=== PATIENT | female | born 2000 | race African-American/Black ===

== ENCOUNTER → 2020-03-13 14:36 | Outpatient (BNVA) | payer MEDICAID, SELFPAY | PROVIDERS: Visit Provider Nurse Practitioner | DX: Z76.89 Persons encountering health services in other specified circumstances (principal) | CPT/HCPCS: 99213 ==

== ENCOUNTER 2020-04-30 21:24 | Emergency (ER) | payer MEDICAID, SELFPAY ==
[2020-04-30 21:25] VITALS: BP 141/70; PULSE 87; RESP 18; TEMP 36.4; O2SAT 100; BMI 28.7
--- NOTE | 2020-04-30 22:23 | ED_ITS ---
HPI - Skin/Abscess/Foreign Bdy General Chief complaint: Skin/Abscess/Foreign Body Stated complaint: Red Inflamed Skin Time Seen by Provider: 04/30/20 22:12 Source: patient Mode of arrival: ambulatory Limitations: no limitations History of Present Illness HPI narrative: patient noticed 2 small bumps on her right elbow 2 days ago possible insect bite, today she noticed redness around it with swelling spreading. No fever no chills no joint pain MD complaint: rash and insect bite/sting Onset (ago): day(s) (2) Tetanus up to date: yes Related Data Previous Rx's Medication Instructions Recorded cephalexin [Keflex] 500 mg PO QID 10 Days #40 cap 04/30/20 doxycycline hyclate 100 mg PO BID #20 cap 04/30/20 Allergies Allergy/AdvReac Type Severity Reaction Status Date / Time apple [APPLE] Allergy Severe THROAT Unverified 02/24/20 16:47 CLOSING hernández Allergy Severe THROAT Unverified 02/24/20 16:47 CLOSING kiwi [KIWI] Allergy Severe THROAT Unverified 02/24/20 16:47 CLOSING lamotrigine [From LAMICTAL] Allergy Severe HIVES Unverified 02/24/20 16:47 peach [[place]] Allergy Severe THROAT Unverified 02/24/20 16:47 CLOSING pear [PEAR] Allergy Severe THROAT Unverified 02/24/20 16:47 CLOSING plum [PLUM] Allergy Severe THROAT Unverified 02/24/20 16:47 CLOSING strawberry [STRAWBERRY] Allergy Severe THROAT Unverified 02/24/20 16:47 CLOSING Review of Systems Review of Systems: Yes all other systems are reviewed and are negative PMF Past Medical History Medical History Asthma IBS (irritable bowel syndrome) Surgical History History of tonsillectomy Family History Family History Father No problems noted. Mother No problems noted. Brother Crohn's disease Social History Social History Alcohol intake: current Alcohol intake frequency: does not drink Smoking Status: Never smoker Advance Directives: No Advance Directives Information Provided: Yes Physical Exam Vital Signs: Vital Signs: Last Vital Signs Temp 97.5 F 04/30/20 21:25 Pulse 87 04/30/20 21:25 Resp 18 04/30/20 21:25 BP 141/70 H 04/30/20 21:25 Pulse Ox 100 04/30/20 21:25 Body Mass Index 28.7 Const: General: cooperative, healthy appearing, comfortable and no acute distress Resp: Effort & Inspection: normal respiratory effort Auscultation: clear to auscultation bilaterally Cardio: Rate: regular rate Rhythm: regular rhythm Heart sounds: S1 normal heart sound present and S2 normal heart sound present Skin: Other: cellulitic erythematous rash right elbow were the size of 10 cm, not circumferential, right elbow range of movement is normal. No open wound Rashes: rashes noted ( right elbow) Course Course Course Narrative: will treat patient outpatient antibiotic doxycycline and Keflex for cellulitic rash after insect bite Discharge Plan Discharge Clinical Impression: Cellulitis Patient Disposition: Home, Self-Care Instructions: Cellulitis (ED) Additional Instructions: take antibiotics as prescribed. Report to the ER if worsening of the redness /swelling fever Prescriptions: New doxycycline hyclate 100 mg capsule 100 mg PO BID Qty: 20 RF: 0 cephalexin [Keflex] 500 mg capsule 500 mg PO QID 10 Days Qty: 40 RF: 0
[2020-04-30] MEDS: cephALEXin 500 MG CAPSULE PO (22:34)
== END 2020-04-30 23:03 | disposition home or self-care (01) ==
PROVIDERS: Emergency Provider Internal Medicine; PCP Pediatrics
DX: L03.113 Cellulitis of right upper limb (principal); M25.521 Pain in right elbow; Z79.899 Other long term (current) drug therapy
CPT/HCPCS: 99283; 99284

== ENCOUNTER 2020-05-02 21:00 | Emergency (ER) | payer MEDICAID, SELFPAY ==
[2020-05-02 21:07] VITALS: BP 131/65; PULSE 90; RESP 16; TEMP 36.8; O2SAT 98; BMI 28.9
--- NOTE | 2020-05-02 21:30 | ED_ITS ---
HPI - Skin/Abscess/Foreign Bdy General Chief complaint: Skin/Abscess/Foreign Body Stated complaint: cellulitus Time Seen by Provider: 05/02/20 21:30 Source: patient Mode of arrival: ambulatory Limitations: no limitations History of Present Illness MD complaint: rash and lesion Onset (ago): day(s) (today) Tetanus up to date: yes Location: RUE and LLE Severity: mild Quality: pruritic Relieving factors: none Exacerbating factors: none Context: none Associated symptoms: denies other symptoms Treatments prior to arrival: antibiotic (has been on keflex and doxy for 2 days for RUE which is improving) Related Data Previous Rx's Medication Instructions Recorded cephalexin [Keflex] 500 mg PO QID 10 Days #40 cap 04/30/20 doxycycline hyclate 100 mg PO BID #20 cap 04/30/20 prednisone 40 mg PO DAILY 4 Days #8 tab 05/02/20 Allergies Allergy/AdvReac Type Severity Reaction Status Date / Time apple [APPLE] Allergy Severe THROAT Verified 05/02/20 21:30 CLOSING hernández Allergy Severe THROAT Verified 05/02/20 21:30 CLOSING kiwi [KIWI] Allergy Severe THROAT Verified 05/02/20 21:30 CLOSING lamotrigine [From LAMICTAL] Allergy Severe HIVES Verified 05/02/20 21:30 peach [[place]] Allergy Severe THROAT Verified 05/02/20 21:30 CLOSING pear [PEAR] Allergy Severe THROAT Verified 05/02/20 21:30 CLOSING plum [PLUM] Allergy Severe THROAT Verified 05/02/20 21:30 CLOSING strawberry [STRAWBERRY] Allergy Severe THROAT Verified 05/02/20 21:30 CLOSING bee pollen [bee stings] Allergy Unknown Verified 05/02/20 21:30 Review of Systems Review of Systems: Constitutional : No Fever, No Chills ENT/Mouth : No sore throat, No Rhinorrhea Eyes: No Eye Pain, No Swelling, No Redness Cardiovascular : No Chest Pain, No SOB Respiratory : No Cough, No Sputum Gastrointestinal : No Nausea, No Vomiting, No Diarrhea, No abdominal Pain Genitourinary : No Dysuria, No Hematuria Musculoskeletal : No joint pain, No Myalgias, No Joint Swelling Skin : No Skin Lesions, positive skin rash Neuro : No Weakness, No Numbness, No Headache PMFSH Past Medical History Attestation statement: The following information was validated with the patient. Medical History Asthma IBS (irritable bowel syndrome) Surgical History History of tonsillectomy Family History Family History Father No problems noted. Mother No problems noted. Brother Crohn's disease Social History Social History Alcohol intake: never Smoking Status: Never smoker Advance Directives: No Advance Directives Information Provided: Yes Physical Exam Vital Signs: Vital Signs: Last Vital Signs Temp 98.3 F 05/02/20 21:07 Pulse 90 05/02/20 21:07 Resp 16 05/02/20 21:07 BP 131/65 05/02/20 21:07 Pulse Ox 98 05/02/20 21:07 Body Mass Index 28.9 Appearance: Alert. Oriented X3. No acute distress. Eyes: Pupils equal, round and reactive to light. ENT: Pharynx normal. Neck: Normal inspection. Neck supple. CVS: Normal heart rate and rhythm. Pulses normal. Respiratory: No respiratory distress. Breath sounds normal. Abdomen: Soft and nontender. Skin: RUE small erythematous area - clearing, L calf raised area on posterior aspect mild erythema no warmth - large hive appearance Extremities: No lower extremity edema. No calf ttp Neuro: Oriented X 3. No motor deficit. No sensory deficit. MDM - Skin/Abscess/Foreign Bdy MDM Narrative Medical decision making narrative: 19 yo female with recent cellulitis of RUE on keflex and doxycycline - now with new lesion on L calf more consistent with a local allergic reaction - no overlying cellulitis, will start on steroids and refer to PCP Discharge Plan Discharge Clinical Impression: Allergic reaction Qualifiers: Encounter type: initial encounter Qualified Code(s): T78.40XA - Allergy, unspecified, initial encounter Patient Disposition: Home, Self-Care Instructions: Urticaria (ED), Allergies (ED) Additional Instructions: return to ED for any worsening symptoms or concerns YOU CAN USE TOPICAL BENADRYL TO TREAT ITCHING, CONTINUE YOUR ANTIBIOTICS Prescriptions: New prednisone 20 mg tablet 40 mg PO DAILY 4 Days Qty: 8 RF: 0 No Action doxycycline hyclate 100 mg capsule 100 mg PO BID Qty: 20 RF: 0 cephalexin [Keflex] 500 mg capsule 500 mg PO QID 10 Days Qty: 40 RF: 0 Referrals: Geovanna Mijares MD [Primary Care Provider] - 2 days (if not better) Stand Alone Forms: Work/School Release
[2020-05-02] MEDS: predniSONE 20 MG TABLET 40 MG PO (21:43)
== END 2020-05-02 21:45 | disposition home or self-care (01) ==
PROVIDERS: Emergency Provider Emergency Medicine; PCP Pediatrics
DX: L23.9 Allergic contact dermatitis, unspecified cause (principal); Z79.899 Other long term (current) drug therapy
CPT/HCPCS: 99283

== ENCOUNTER → 2020-07-18 12:39 | Outpatient (BNVA) | payer MEDICAID, SELFPAY | PROVIDERS: PCP Pediatrics; Visit Provider Nurse Practitioner ==

== ENCOUNTER → 2021-01-15 14:25 | Outpatient (BNVA) | payer MEDICAID, SELFPAY | PROVIDERS: PCP Pediatrics; Visit Provider Nurse Practitioner ==

== ENCOUNTER → 2021-03-02 15:22 | Outpatient (BNVA) | payer MEDICAID, SELFPAY | PROVIDERS: PCP Family Medicine; Visit Provider Nurse Practitioner ==

== ENCOUNTER → 2021-04-13 16:04 | Outpatient (BNVA) | payer MEDICAID, SELFPAY | PROVIDERS: PCP Family Medicine; Visit Provider Nurse Practitioner ==

== ENCOUNTER 2021-06-12 08:58 | Outpatient (REF) | payer MEDICAID, SELFPAY ==
[2021-06-12 12:30] LABS: Binax Internal Control QC Valid; Binax Lot number: 9864; Binax Now Covid-19 Ag Positive (Negative)
== END 2021-06-12 08:59 | disposition home or self-care (01) ==
LOC: HO.LAB 08:58
PROVIDERS: Visit Provider Internal Medicine
DX: Z20.822 Contact with and (suspected) exposure to COVID-19 (principal)
CPT/HCPCS: 36415; C9803

== ENCOUNTER 2021-08-21 08:17 | Emergency (ER) | payer MEDICAID, SELFPAY ==
--- NOTE | ~2021-08-21 | CT_ITS ---
EXAMINATION: CT CHEST, ABDOMEN AND PELVIS WITH CONTRAST. CLINICAL INFORMATION: Chest and abdominal pain. Confluent adenopathy in the mediastinum on CTA neck exam COMPARISON: None TECHNIQUE: 5 minutes thin axial and reformatted 3 mm thin sagittal and coronal images of chest, abdomen pelvis were obtained following IV 85 mL Omnipaque 350. DLP: 760. FINDINGS: Chest: Lungs: Lungs are well-expanded. There is a pleural-based density 1.6 cm density left CP angle medially axial image 50/6, 1.1 cm right upper lobe lesion attached to the right minor fissure at the confluence axial image 218/7 and 7 mm nodule left upper lobe centrally axial image 168/7. The lungs are expanded with the right azygos lobe noted. There is focal calcification within the azygos fissure. Mediastinum: The thyroid lobes are symmetrical. The central trachea and bronchi are widely patent. Heart size and the great vessels are normal caliber. There is moderate bilateral hilar (the right, left para-aortic abnormal lymphadenopathy. Largest left posterior hilar lymph node measures 1.8 cm axial image 26/5. There is trace coronary artery calcifications. No pericardial effusion seen. Pleura: There is no pleural thickening, calcification or effusion. Axilla: No abnormal size neck lymph nodes seen. The chest wall is unremarkable. The breast are symmetric. Abdomen and pelvis: Liver, ducts and gallbladder: The liver is mildly attenuated but normal size and contour. No focal lesion or intrahepatic ductal dilatation seen. The gallbladder is normal size without radiopaque stones. Spleen unremarkable. Pancreas: Unremarkable. Adrenal glands: Unremarkable. Kidneys, ureter and bladder: There is normal symmetric nephrograms in both ureters and kidneys. There are no radiopaque renal calculi or hydronephrosis. There are symmetrical bilateral nephrograms Lymphovascular structures: The abdominal aorta is of normal caliber. No abnormal retroperitoneal lymph nodes or mass seen. Abdominal wall: Unremarkable except for a belly ring at the umbilicus. GI tract: There is scattered stool and gas in transverse and right colon without distention. The small bowel loops are normal caliber. Appendix is not visualized. No free air or free fluid seen. Pelvis: Imaging through the pelvis reveals no focal lesion. The uterus is anteverted. No abnormal lymph nodes seen. The urinary bladder is unremarkable. Osseous structures: There is no lytic or sclerotic process seen. The presacral and paraseptal soft tissues are normal.. CT/CT abdomen pelvis w con IMPRESSION: Moderate size 3 lung nodules seen., Suspicious. Abnormal para-aortic, bilateral hilar and middle mediastinal lymphadenopathy. No abnormal mass or lymphadenopathy in the abdomen or pelvis. Mild constipation.
--- NOTE | ~2021-08-21 | CT_ITS ---
EXAMINATION: CT ANGIOGRAM NECK WITH CONTRAST CT ANGIOGRAM BRAIN WITH CONTRAST CLINICAL INFORMATION: Sudden onset headache. 4:00 AM, from sleep. COMPARISON: None. TECHNIQUE: Test bolus sequences followed by intravenous administration 100 mL of Omnipaque 350. Helical imaging was performed in the axial plane from the thoracic inlet to the skull vertex. Delayed postcontrast imaging of the head was also performed. The data was processed at the dairy technologist workstation for generation of MIP sequences. Angled MIPs and volume rendered reformatted images were also generated at an offline 3D workstation. Stenoses are assessed in accordance with NASCET criteria unless otherwise indicated. This CT examination was performed using dose optimization techniques as appropriate, variously including the following: *Automated exposure control *Adjustment of mA and/or kV according to patient size (this includes techniques or standardized protocols for targeted exams where dose is matched to indication/reason for exam; i.e. extremities or head) *Use of iterative reconstruction technique DLP: 2334 mGy-cm FINDINGS: Head CT: There is no intracranial hemorrhage, large acute infarction, or mass lesion. The ventricles are normal in size and configuration without evidence of hydrocephalus. No abnormal enhancement is seen. The dural venous sinuses are normally opacified. The visualized paranasal sinuses and mastoid air cells are clear. Neck CTA: Evaluation is limited particularly in the lower neck due to the poor opacification of the arterial vasculature an artifact related to venous contamination. The aortic arch and great vessel origins are patent. The bilateral common and internal carotid arteries are patent. The vertebral arteries appear grossly patent. Head CTA: No proximal vessel occlusion is seen. The anterior and posterior circulations appear patent. No definite aneurysm is seen. Non-vascular findings: Bulky confluent adenopathy is seen within the visualized portions of the mediastinum particularly on the left where soft tissue seen surrounding the left pulmonary artery. Further soft tissue nodularity is seen along the left upper lobe bronchus. There is focal soft tissue lesion measuring approximately 1.3 cm along the left upper lung pleura confluent with the chest wall (series 7 image [id number]). CT/CT angio head neck IMPRESSION: Bulky confluent adenopathy within the mediastinum with additional nodularity seen in the left upper lobe and along the left upper lobe pleura confluent with the chest wall. A metastatic process is favored. Further evaluation with CT of the chest, abdomen, and pelvis with contrast is recommended. No acute intracranial abnormality is seen. Consider brain MRI for more sensitive evaluation. Major head and neck arteries appear grossly patent however the neck arteries are somewhat difficult to evaluate due to artifact. This critical result was discussed with SAMANTHA Pang on 08/21/2021 11:13 AM, and it was ascertained that the content and urgency of the report was understood at the time of direct communication.
[2021-08-21 08:21] VITALS: BP 132/79; PULSE 74; RESP 20; TEMP 36.4; O2SAT 100; BMI 29.2
--- NOTE | 2021-08-21 08:55 | ED_ITS ---
HPI - Headache General Chief Complaint: Headache Stated Complaint: Numbness/severe headaches Time Seen by Provider: 08/21/21 08:37 Source: patient Mode of arrival: ambulatory History of Present Illness HPI Narrative: 21-year-old female past medical history of asthma, IBS, presenting to the ED complaining of sudden onset headache waking her from sleep at 04:00. Admits headache has been constant since onset worse on right side with associated intermittent left finger and lip numbness, nausea, and 2 episodes of emesis. Denies similar headaches in the past. Denies head trauma, no neck pain, taking anticoagulation, vision change/loss, weakness, CP/SOB, abdominal pain MD elicited complaint: headache Onset (ago): hour(s) Onset description: suddenly Location: right Severity: mild Related Data Previous Rx's Medication Instructions Recorded dicyclomine 10 mg capsule 10 mg PO QID 30 Days #120 cap 01/15/21 famotidine 40 mg tablet (Pepcid) 40 mg PO DAILY PRN 30 Days #30 tab 03/02/21 Allergies Allergy/AdvReac Type Severity Reaction Status Date / Time apple [APPLE] Allergy Severe THROAT Verified 04/13/21 16:06 CLOSING hernández Allergy Severe THROAT Verified 04/13/21 16:06 CLOSING kiwi [KIWI] Allergy Severe THROAT Verified 04/13/21 16:06 CLOSING lamotrigine [From LAMICTAL] Allergy Severe HIVES Verified 04/13/21 16:06 peach [[place]] Allergy Severe THROAT Verified 04/13/21 16:06 CLOSING pear [PEAR] Allergy Severe THROAT Verified 04/13/21 16:06 CLOSING plum [PLUM] Allergy Severe THROAT Verified 04/13/21 16:06 CLOSING strawberry [STRAWBERRY] Allergy Severe THROAT Verified 04/13/21 16:06 CLOSING bee pollen [bee stings] Allergy Intermediate Unknown Verified 04/13/21 16:06 Review of Systems Review of Systems: Constitutional: No Fever, No Chills, No Fatigue, No Malaise ENT/Mouth:No Ear Pain, No sore throat, No Rhinorrhea, No Swallowing Difficulty Eyes: No Eye Pain, No Swelling, No Redness, No Discharge, No Vision Changes Cardiovascular: No Chest Pain, No SOB, No Orthopnea, No Edema, No Palpitations Respiratory: No Cough, No Sputum, No Dyspnea Gastrointestinal: + Nausea, + Vomiting, No Diarrhea, NNo Abdominal pain Genitourinary: No Dysuria, No Urinary Frequency, No Hematuria, No Urinary Incontinence, No Flank Pain Musculoskeletal: No joint pain, No Myalgias, No Joint Swelling Skin: No Skin Lesions, No rash Neuro: No Weakness, + Numbness, + Paresthesias, No Loss of Consciousness, + lightheaded, + Headache Yes all other systems are reviewed and are negative Neurologic: Denies Abnormal speech present [facility] Past Medical History Attestation statement: The following information was validated with the patient. Medical History Asthma IBS (irritable bowel syndrome) Surgical History History of colonoscopy History of esophagogastroduodenoscopy (EGD) History of tonsillectomy Family History Family History Father No problems noted. Mother Brain tumor (benign) Brother Crohn's disease Social History Social History Household Members Other:: Boyfriend Alcohol intake: never Patient Tobacco Use Status: Never used Tobacco Second Hand Smoke Exposure: No Use of substances other than those prescribed or required for medical reasons: No Advance Directives: No Advance Directives Information Provided: Yes Patient : No Current occupational status: employed Current occupation: [employer] Physical Exam Vital Signs: Vital Signs: Last Vital Signs Temp 98.4 F 08/21/21 14:19 Pulse 77 08/21/21 14:19 Resp 16 08/21/21 14:19 BP 94/60 08/21/21 14:19 Pulse Ox 100 08/21/21 14:19 BMI result Body Mass Index 29.2 Const: General: cooperative, healthy appearing, no acute distress, alert, awake and Physically active Orientation/consciousness: patient oriented x3 Limitations: no limitations HENMT: Head: Yes normal to inspection, Yes atraumatic and Yes abrasion Ears: hearing grossly normal bilaterally General nose exam: Normal external nose present Face and sinus: Yes normal facial exam Mouth: Normal oral and palatal mucosa present Throat: Yes posterior oropharynx normal, Yes tonsils normal and Yes uvula midline Eyes: General: appearance normal, both eyes and all related structures Pupils: Equal, round and reactive pupils present EOM: EOMs intact bilaterally Neck: Neck: Yes normal visual inspection, Yes full ROM, Yes no lymphadenopathy and Yes no meningeal signs Resp: Effort & Inspection: normal respiratory effort and no respiratory di stress Auscultation: clear to auscultation bilaterally, no rales, no rhonchi and no wheezes Cardio: Rate: regular rate Heart sounds: S1 normal heart sound present and S2 normal heart sound present GI: Inspection: Yes normal to inspection Palpation (GI): Soft to palpation, nontender, no guarding and not rigid : General: Yes no CVA tenderness Back/Spine/Pelvis: Back: no CVA tenderness Skin: Rashes: no rashes Wounds: no wounds Neuro: General: patient oriented x3, gait normal, tone normal, moves all extremities, no meningeal signs, no focal motor deficits and CN's II-XI intact bilaterally Cranial nerves: Yes CN's II-XII intact bilaterally, Yes Equal, round and reactive pupils present and Yes Bilaterally intact EOM present Cognition (Neuro): normal cognition Speech: No Abnormal speech present Gait exam (Neuro): Normal gait present Motor exam (neuro): 5/5 motor strength present throughout, Pronator motor function not present and no tremor noted Coordination: [id number] test normal Romberg Test: Negative Extrem: General: Yes normal to inspection Course Course Course Narrative: -1133--no leukocytosis. H&H stable. AST elevated to 39 CT angio head neck IMPRESSION: Bulky confluent adenopathy within the mediastinum with additional nodularity seen in the left upper lobe and along the left upper lobe pleura confluent with the chest wall. A metastatic process is favored. Further evaluation with CT of the chest, abdomen, and pelvis with contrast is recommended. ? No acute intracranial abnormality is seen. Consider brain MRI for more sensitive evaluation. Major head and neck arteries appear grossly patent however the neck arteries are somewhat difficult to evaluate due to artifact. This critical result was discussed with SAMANTHA Pang on 08/21/2021 11:13 AM, and it was ascertained that the content and urgency of the report was understood at the time of direct communication. > discussed with radiologist Dr. Reeder, will re-inject patient for further studies, benefit outweighs risk, renal function WNL. Discussed results with patient and mother at bedside, patient reports symptomatic improvement since ED arrival, is resting comfortably. Additional IVF ordered -1506-CT chest w con/CT abdomen pelvis w con IMPRESSION: Moderate size 3 lung nodules seen., Suspicious. Abnormal para-aortic, bilateral hilar and middle mediastinal lymphadenopathy. No abnormal mass or lymphadenopathy in the abdomen or pelvis. Mild constipation. > verified findings with radiologist Dr. Holcomb, finding suspicious for inflammatory lymphadenopathy rather an malignancy, likely post COVID. Discussed results with patient including possibility of malignancy. Discussed with case management will work on getting patient quick appointment with Oncology. P atevan reports symptomatic improvement since ED arrival. Will initiate doxycycline, prednisone, and DC on Fioricet. Discussed worrisome signs and symptoms and strict return precautions, she verbalized understanding feel safe for discharge home with this time MDM - Headache MDM Narrative Medical decision making narrative: 21-year-old female past medical history of asthma, IBS, presenting to the ED complaining of sudden onset headache waking her from sleep at 04:00. Admits headache has been constant since onset worse on right side with associated intermittent left finger and lip numbness, nausea, and 2 episodes of emesis. On exam vital signs stable, tearful, anxious on exam, no focal neuro deficits, sensation intact to light touch throughout, denies numbness at present, reports intermittent. Concern for SAH vs migraine headache. Lower concern for CVT or cervical dissection Plan: Labs, head CT, CTA head and neck, IVF, symptomatic treatment Differential Diagnosis Differential diagnosis: Likely migraine, tension headache, subarachnoid hemorrhage and headache Medical Records Attestation: I reviewed the patient's medical records. Lab Data Attestation: I reviewed the patient's lab results. Result diagrams: 08/21/21 09:36 08/21/21 09:36 Labs: Lab Results 08/21/21 08/21/21 08/21/21 Range/Units 09:36 09:36 09:36 WBC 8.0 (4.8-10.8) X10*3/uL RBC 4.34 (4.20-5.50) X10*6/uL Hgb 13.3 (12.0-16.0) g/dl Hct 40.2 (37.0-47.0) % MCV 92.6 (80.0-98.0) fL MCH 30.6 (27.0-33.0) pg MCHC 33.1 (31.0-35.0) g/dl RDW 11.9 (11.0-16.0) % Plt Count 247 (160-400) X10*3/uL MPV 10.4 (9.4-12.3) fL Immature Gran % (Auto) 0.3 (0.0-0.4) % Neut % (Auto) 86.3 H (45-73) % Lymph % (Auto) 9.6 L (20-40) % Alexander % (Auto) 3.1 (2-11) % Eos % (Auto) 0.4 (0-4) % Baso % (Auto) 0.3 (0-2) % Lymph # (Auto) 0.8 L (1.2-4.9) X10*3/uL Alexander # (Auto) 0.3 (0.1-1.2) X10*3/uL Eos # (Auto) 0.0 (0.0-0.4) X10*3/uL Baso # (Auto) 0.0 (0.0-0.2) X10*3/uL Abs Immat Gran (auto) 0.02 (0.00-0.03) X10*3/uL Absolute Neuts (auto) 6.9 (2.0-8.3) x10*3/uL Absolute Nucleated RBC 0.000 (0.0-0.012) X10*3/uL Nucleated RBC % (auto) 0.0 (0.0-0.2) /100WBC PT 13.3 H (9.9-13.0) SEC INR 1.2 H (0.9-1.1) APTT 34.9 (24.1-38.0) SEC Sodium 139 (135-145) mmol/L Potassium 4.7 (3.3-5.1) mmol/L Chloride 106 (96-108) mmol/L Carbon Dioxide 25 (22-29) mmol/L Anion Gap 13 (12-20) BUN 16 (9-16) mg/dL Creatinine 0.74 (0.5-1.4) mg/dL Estim Creat Clear Calc 110.2 Estimated GFR > 60 Random Glucose 106 (60-115) mg/dL Calcium 9.8 (8.4-10.2) mg/dL Magnesium 2.2 (1.6-2.6) mg/dL Total Bilirubin 0.7 (0.0-1.0) mg/dL Direct Bilirubin 0.3 (0.0-0.5) mg/dL AST 39 H (5-31) U/L ALT 23 (0-31) U/L Alkaline Phosphatase 58 (39-117) U/L Total Protein 7.4 (6.5-8.0) g/dL Albumin 4.6 (3.5-5.0) g/dL Urine Color Urine Appearance Urine pH (5.0-8.0) Ur Specific [place] (1.005-1.025) Urine Protein (NEG-TRACE) MG/DL Urine Glucose (UA) (NEG) MG/DL Urine Ketones (NEG) MG/DL Urine Blood (NEG) Urine Nitrite (NEG) Ur Leukocyte Esterase (NEG) Urine RBC (0) /HPF Urine WBC (0-4) /HPF Ur Squamous Epith Cells /LPF Urine Bacteria /LPF Urine Mucus /LPF Urine Test (NEGATIVE) 08/21/21 08/21/21 Range/Units 11:20 11:20 WBC (4.8-10.8) X10*3/uL RBC (4.20-5.50) X10*6/uL Hgb (12.0-16.0) g/dl Hct (37.0-47.0) % MCV (80.0-98.0) fL MCH (27.0-33.0) pg MCHC (31.0-35.0) g/dl RDW (11.0-16.0) % Plt Count (160-400) X10*3/uL MPV (9.4-12.3) fL Immature Gran % (Auto) (0.0-0.4) % Neut % (Auto) (45-73) % Lymph % (Auto) (20-40) % Alexander % (Auto) (2-11) % Eos % (Auto) (0-4) % Baso % (Auto) (0-2) % Lymph # (Auto) (1.2-4.9) X10*3/uL Alexander # (Auto) (0.1-1.2) X10*3/uL Eos # (Auto) (0.0-0.4) X10*3/uL Baso # (Auto) (0.0-0.2) X10*3/uL Abs Immat Gran (auto) (0.00-0.03) X10*3/uL Absolute Neuts (auto) (2.0-8.3) x10*3/uL Absolute Nucleated RBC (0.0-0.012) X10*3/uL Nucleated RBC % (auto) (0.0-0.2) /100WBC PT (9.9-13.0) SEC INR (0.9-1.1) APTT (24.1-38.0) SEC Sodium (135-145) mmol/L Potassium (3.3-5.1) mmol/L Chloride (96-108) mmol/L Carbon Dioxide (22-29) mmol/L Anion Gap (12-20) BUN (9-16) mg/dL Creatinine (0.5-1.4) mg/dL Estim Creat Clear Calc Estimated GFR Random Glucose (60-115) mg/dL Calcium (8.4-10.2) mg/dL Magnesium (1.6-2.6) mg/dL Total Bilirubin (0.0-1.0) mg/dL Direct Bilirubin (0.0-0.5) mg/dL AST (5-31) U/L ALT (0-31) U/L Alkaline Phosphatase (39-117) U/L Total Protein (6.5-8.0) g/dL Albumin (3.5-5.0) g/dL Urine Color YELLOW Urine Appearance CLEAR Urine pH 7.0 (5.0-8.0) Ur Specific [place] 1.010 (1.005-1.025) Urine Protein NEG (NEG-TRACE) MG/DL Urine Glucose (UA) NEG (NEG) MG/DL Urine Ketones 15 (NEG) MG/DL Urine Blood 1+ H (NEG) Urine Nitrite NEG (NEG) Ur Leukocyte Esterase NEG (NEG) Urine RBC 1-4 (0) /HPF Urine WBC 0-2 (0-4) /HPF Ur Squamous Epith Cells 1+ /LPF Urine Bacteria NONE /LPF Urine Mucus 1+ /LPF Urine Test NEGATIVE (NEGATIVE) Discharge Plan Discharge Clinical Impression: Headache, Lung nodules, Mediastinal lymphadenopathy Patient Disposition: Home, Self-Care Instructions: Acute Headache (DC), Lymphadenopathy (ED) Prescriptions: No Action dicyclomine 10 mg capsule 10 mg PO QID 30 Days Qty: 120 6RF famotidine [Pepcid] 40 mg tablet 40 mg PO DAILY PRN (Reason: heartburn) 30 Days Qty: 30 3RF
[2021-08-21 09:27] VITALS: BP 95/59; PULSE 71; RESP 16; O2SAT 97
[2021-08-21 09:37] VITALS: TEMP 36.7
[2021-08-21 09:49] LABS: MANUAL DIFF FLAG NO
[2021-08-21] MEDS: Acetaminophen 325 MG TABLET 650 MG PO (09:51)
[2021-08-21] MEDS: Metoclopramide HCl 10 MG/2 ML VIAL IVPUSH (09:53)
[2021-08-21] MEDS: 0.9 % Sodium Chloride 1,000 ML 999 ML IV ×2 (09:55→11:37)
[2021-08-21] MEDS: diphenhydrAMINE HCL 50 MG/ML VIAL 12.5 MG IVPUSH (09:55)
[2021-08-21 10:02] LABS: INTERNATIONAL NORM RATIO 1.2 (0.9-1.1); Prothrombin Time 13.3 SEC (9.9-13.0)
[2021-08-21 10:05] LABS: Basophils Percent Auto 0.3 % (0-2); Eosinophils Percent Auto 0.4 % (0-4); Hematocrit 40.2 % (37.0-47.0); Hemoglobin 13.3 g/dl (12.0-16.0); Imm Gran Abs Auto 0.02 X10*3/uL (0.00-0.03); Imm Gran Pct Auto 0.3 % (0.0-0.4); Lymphocytes Absolute Auto 0.8 X10*3/uL (1.2-4.9); Lymphocytes Percent Auto 9.6 % (20-40); Mean Corpuscular HGB Conc 33.1 g/dl (31.0-35.0); Mean Corpuscular Hemoglobin 30.6 pg (27.0-33.0); Mean Corpuscular Volume 92.6 fL (80.0-98.0); Mean Platelet Volume 10.4 fL (9.4-12.3); Monocytes Absolute Auto 0.3 X10*3/uL (0.1-1.2); Monocytes Percent Auto 3.1 % (2-11); Neutrophils Absolute Auto 6.9 x10*3/uL (2.0-8.3); Neutrophils Percent Auto 86.3 % (45-73); Partial Thromboplastin Time 34.9 SEC (24.1-38.0); Platelet Count 247 X10*3/uL (160-400); Red Blood Count 4.34 X10*6/uL (4.20-5.50); Red Cell Distribution Width 11.9 % (11.0-16.0)
[2021-08-21 10:07] LABS: Alanine Aminotransferase 23 U/L (0-31); Albumin Level 4.6 g/dL (3.5-5.0); Alkaline Phosphatase 58 U/L (39-117); Anion Gap 13 (12-20); Aspartate Amino Transferase 39 U/L (5-31); Bilirubin Direct 0.3 mg/dL (0.0-0.5); Bilirubin Total 0.7 mg/dL (0.0-1.0); Blood Urea Nitrogen 16 mg/dL (9-16); Calcium 9.8 mg/dL (8.4-10.2); Carbon Dioxide 25 mmol/L (22-29); Chloride 106 mmol/L (96-108); Creatinine Clr Calc Pharmacy 110.2; Estimated Glomerular Filt Rate > 60; Glucose Random 106 mg/dL (60-115); Magnesium 2.2 mg/dL (1.6-2.6); Potassium 4.7 mmol/L (3.3-5.1); Sodium 139 mmol/L (135-145); Total Protein 7.4 g/dL (6.5-8.0)
[2021-08-21] MEDS: iohexoL 350 MG/ML 100 ML INFUS..BTL IV (10:46)
[2021-08-21 11:30] LABS: Appearance Urine CLEAR; Color Urine YELLOW; Glucose Urine UA NEG (NEG); Leukocyte Esterase Urine NEG (NEG); Nitrite Urine NEG (NEG); UACC Culture Trigger NO; Urine Blood 1+ (NEG); Urine Ketones 15 MG/DL (NEG); Urine Protein NEG (NEG-TRACE)
[2021-08-21 11:33] LABS: UPreg QC Valid YES; Urine Pregnancy NEGATIVE (NEGATIVE)
[2021-08-21 11:39] LABS: Mucus Urine 1+ /LPF; Squamous Epithelial Cell Urine 1+ /LPF; WBC Urine 0-2 /HPF (0-4)
[2021-08-21 11:56] VITALS: BP 99/59; PULSE 84; RESP 16; TEMP 36.6; O2SAT 100
[2021-08-21] MEDS: iohexoL 350 MG/ML 100 ML INFUS..BTL 85 ML IV (13:38)
[2021-08-21 14:19] VITALS: BP 94/60; PULSE 77; RESP 16; TEMP 36.9; O2SAT 100
--- NOTE | 2021-08-21 15:26 | MHC.CM.ED ---
Received notification from Ania SINGH that patient needs a follow up appointment with Dr Valdez. Patient has a lung nodule that could potentially be cancerous. PCP is at [facility]. workforce development assistant has been asked to notify PCP's office to arrange this. PCP's office will reach out to patient.
[2021-08-21] MEDS: Butalb/Acetamin/Caff 50/325/40 TABLET 2 TAB PO (15:43)
[2021-08-21] MEDS: predniSONE 20 MG TABLET 40 MG PO (15:43)
== END 2021-08-21 15:52 | disposition home or self-care (01) ==
PROVIDERS: Physician Assistant; Emergency Provider Emergency Medicine; PCP Family Medicine
DX: R51.9 Headache, unspecified (principal); R91.8 Other nonspecific abnormal finding of lung field; R59.1 Generalized enlarged lymph nodes
CPT/HCPCS: 36415; 70496; 70498; 71260; 74177; 80048; 80076; 81001; 81025; 83735; 85025; 85610; 85730; 96361; 96374; 96375; 99285; J1200; J2765; Q9967

== ENCOUNTER 2021-09-06 16:41 | Outpatient (REF) | payer MEDICAID, SELFPAY ==
--- NOTE | ~2021-09-06 | MR_ITS ---
EXAMINATION: MR BRAIN WITHOUT AND WITH CONTRAST CLINICAL INFORMATION: Subgaleal headache. Numbness and tingling. Left hand. Self-reported severe headache and left hand numbness. COMPARISON: CT angiography head 08/21/2021. TECHNIQUE: Multiplanar, multisequence MRI of the brain was obtained before and after the intravenous administration of 7 mL Gadavist. FINDINGS: No intracranial hemorrhage, tumors or infarcts are noted. The ventricles and sulci are normal in size and configuration. No focal parenchymal lesions of the brain or abnormal extra-axial fluid collections identified. The craniocervical junction cerebellar tonsils are normal in configuration. The pituitary is grossly normal in size. No suspicious marrow abnormalities are identified. Normal flow-related signal intensity is identified in the major intracranial vessels and dural sinuses. The orbits and globes are normal in appearance. No significant mucosal thickening or retained secretions is noted in association with the paranasal sinuses, mastoid air cells and middle ear cavities. No abnormal enhancement the brain parenchyma is noted. MR/MR head/brain wo/w con IMPRESSION: Normal unenhanced and IV contrast enhanced MRI of the brain.
== END 2021-09-06 16:42 | disposition home or self-care (01) ==
LOC: HO.MRI 16:41
PROVIDERS: Visit Provider Nurse Practitioner Family
DX: G44.52 New daily persistent headache (NDPH) (principal)
CPT/HCPCS: 70553; A9585

== ENCOUNTER 2021-09-07 12:46 | Outpatient (REF) | payer MEDICAID, SELFPAY ==
[2021-09-07 13:46] LABS: MANUAL DIFF FLAG NO
[2021-09-07 14:06] LABS: Basophils Percent Auto 0.6 % (0-2); Eosinophils Absolute Auto 0.1 X10*3/uL (0.0-0.4); Eosinophils Percent Auto 1.8 % (0-4); Hematocrit 37.5 % (37.0-47.0); Hemoglobin 12.8 g/dl (12.0-16.0); Imm Gran Abs Auto 0.01 X10*3/uL (0.00-0.03); Imm Gran Pct Auto 0.2 % (0.0-0.4); Lymphocytes Absolute Auto 1.5 X10*3/uL (1.2-4.9); Lymphocytes Percent Auto 30.7 % (20-40); Mean Corpuscular HGB Conc 34.1 g/dl (31.0-35.0); Mean Corpuscular Hemoglobin 30.7 pg (27.0-33.0); Mean Corpuscular Volume 89.9 fL (80.0-98.0); Monocytes Absolute Auto 0.4 X10*3/uL (0.1-1.2); Monocytes Percent Auto 8.2 % (2-11); Neutrophils Absolute Auto 2.9 x10*3/uL (2.0-8.3); Neutrophils Percent Auto 58.5 % (45-73); Platelet Count 240 X10*3/uL (160-400); Red Blood Count 4.17 X10*6/uL (4.20-5.50)
[2021-09-07 14:49] LABS: Erythrocyte Sedimentation Rate 8 MM/HR (0-20)
[2021-09-11 09:17] LABS: Anti Nuclear Antibody Pattern Nuclear, Homogeneous; Anti Nuclear Antibody Screen POSITIVE (NEGATIVE)
[2021-09-12 06:41] LABS: Angiotensin Converting Enzyme 38 U/L (9-67)
[2021-09-13 19:01] LABS: Asperg fumigatus Precip Abs NEGATIVE (NEGATIVE); Micropoly faeni Abs NEGATIVE (NEGATIVE); Pigeon serum Abs NEGATIVE (NEGATIVE); Saccharo pora viridis Abs NEGATIVE (NEGATIVE); Thermo candidus Abs NEGATIVE (NEGATIVE); Thermoa vulgaris #1 NEGATIVE (NEGATIVE)
== END 2021-09-07 12:47 | disposition home or self-care (01) ==
LOC: HO.LAB 12:46
PROVIDERS: PCP Family Medicine; Visit Provider Hospitalist
DX: R59.0 Localized enlarged lymph nodes (principal); R91.8 Other nonspecific abnormal finding of lung field; J45.40 Moderate persistent asthma, uncomplicated; J30.2 Other seasonal allergic rhinitis
CPT/HCPCS: 36415; 82164; 82785; 85025; 85652; 86003; 86038; 86039; 86331; 86606; 86609; 99202

== ENCOUNTER 2021-11-15 15:52 | Outpatient (REF) | payer MEDICAID, SELFPAY ==
--- NOTE | ~2021-11-15 | CT_ITS ---
EXAMINATION: CT CHEST WITH CONTRAST CLINICAL INFORMATION: Follow-up pulmonary nodules. COMPARISON: Previous chest CT, most recent 08/28/2021. TECHNIQUE: Multidetector volumetric CT imaging of the chest was obtained after the administration of 65 mL of Omnipaque 350 intravenous contrast without immediate adverse reactions. Axial MIP volume rendering provided. Sagittal and coronal reformatted images were obtained. This CT examination was performed using dose optimization techniques as appropriate, variously including the following: *Automated exposure control *Adjustment of mA and/or kV according to patient size (this includes techniques or standardized protocols for targeted exams where dose is matched to indication/reason for exam; i.e. extremities or head) *Use of iterative reconstruction technique DLP: 140 mGy-cm. FINDINGS: LUNGS: There are multiple bilateral peripheral or subpleural semisolid nodular opacities. The majority of these nodules are partially solid peripherally, and partially ground-glass in attenuation, more centrally, peripheral or subpleural and irregularly-shaped. The largest nodules measure 1 x 1.5 cm in the peripheral or subpleural right upper lobe, adjacent to the minor fissure axial image 65 series 7, peripheral left upper lobe axial image 29 series 7, peripheral or subpleural left lower lobe adjacent to the lateral pleural surface and minor fissure axial image 104 series 7, and at the left lung base in the posteromedial costophrenic angle axial image 131 series 7. There are several new additional solid-appearing round nodules, the largest measuring 3 mm in the left lower lobe axial image 111 series 7, and right lower lobe axial image 95 series 7, and 92 series 7. MEDIASTINUM: There are enlarged bilateral hilar and mediastinal lymph nodes. This does not appear appreciably changed. The heart size is normal. There is no pericardial effusion. PLEURA: There is no pleural effusion. No pleural mass or thickening. AXILLA: No lymphadenopathy. UPPER ABDOMEN: Unremarkable. OSSEOUS STRUCTURES: Unremarkable. CT/CT chest w con IMPRESSION: Stable peripheral or subpleural heterogeneous nodules or infiltrates. Several new small pulmonary nodules, the largest measuring 3 mm in the bilateral lower lobes. Stable enlarged mediastinal and hilar lymphadenopathy. Infectious, inflammatory and neoplastic processes should be considered. Fleischner guidelines were followed.
== END 2021-11-15 15:53 | disposition home or self-care (01) ==
LOC: HO.CT 15:52
PROVIDERS: PCP Family Medicine; Visit Provider Hospitalist
DX: R91.8 Other nonspecific abnormal finding of lung field (principal); R59.0 Localized enlarged lymph nodes
CPT/HCPCS: 71260; Q9967

== ENCOUNTER 2021-12-14 15:43 | Outpatient (REF) | payer MEDICAID, SELFPAY ==
--- NOTE | 2021-12-14 17:17 | PFT_ITS ---
FLOWS: FEV1 104% of predicted at 3.26 L. FVC 99% of predicted at 3.57 L. FEV1 to FVC ratio of 0.91. No bronchodilator response. LUNG VOLUMES: Total lung capacity 96% of predicted at 4.59 L. Residual volume 97% predicted at 1.13 L. Slow vital capacity 96% of predicted at 3.47 L. Expiratory reserve volume 64% predicted at 2.91 L. Diffusion capacity is normal. IMPRESSION: No obstructive or restrictive ventilatory defect. No bronchodilator response. Essentially normal pulmonary function test. Kike Yu MD AP/MODL / [id number]
== END 2021-12-14 15:44 | disposition home or self-care (01) ==
LOC: HO.RESP 15:43
PROVIDERS: Visit Provider Hospitalist
DX: R91.8 Other nonspecific abnormal finding of lung field (principal); J45.909 Unspecified asthma, uncomplicated; R59.0 Localized enlarged lymph nodes
CPT/HCPCS: 94060; 94727; 94729

== ENCOUNTER → 2022-02-19 14:53 | Outpatient (BNVA) | payer MEDICAID, SELFPAY | PROVIDERS: PCP Family Medicine; Visit Provider Hospitalist | DX: J45.40 Moderate persistent asthma, uncomplicated (principal); J30.2 Other seasonal allergic rhinitis; R59.0 Localized enlarged lymph nodes | CPT/HCPCS: 99212 ==

== ENCOUNTER 2022-02-26 11:23 | Day surgery (SDC) | payer MEDICAID, SELFPAY ==
[2022-02-26] VITALS (10 sets, daily range): BP systolic 90–121; BP diastolic 36–72; PULSE 63–88; RESP 16–72; TEMP 36.3–36.6; O2SAT 95–99; BMI 29.2
--- NOTE | 2022-02-26 11:57 | P.HPSUR_ITS ---
Pre-Procedural Eval Section A Date of Service: 02/26/22 The patient is an INPATIENT: No The History & Physical has been completed within 30 days and I have reviewed it.: Yes Section B Chief Complaint: Localized enlarged lymph nodes Allergies: Allergies Allergy/AdvReac Type Severity Reaction Status Date / Time apple [APPLE] Allergy Severe THROAT Verified 02/19/22 15:08 CLOSING hernández Allergy Severe THROAT Verified 02/19/22 15:08 CLOSING kiwi [KIWI] Allergy Severe THROAT Verified 02/19/22 15:08 CLOSING lamotrigine [From LAMICTAL] Allergy Severe HIVES Verified 02/19/22 15:08 peach [[place]] Allergy Severe THROAT Verified 02/19/22 15:08 CLOSING pear [PEAR] Allergy Severe THROAT Verified 02/19/22 15:08 CLOSING plum [PLUM] Allergy Severe THROAT Verified 02/19/22 15:08 CLOSING strawberry [STRAWBERRY] Allergy Severe THROAT Verified 02/19/22 15:08 CLOSING bee pollen [bee stings] Allergy Intermediate Unknown Verified 02/19/22 15:08 Plan I have reviewed the history and physical and performed a pertinent physical examination on my patient. No changes have occurred unless specified.
[2022-02-26 12:13] LABS: UPreg QC Valid YES; Urine Pregnancy NEGATIVE (NEGATIVE)
[2022-02-26] MEDS: Lactated Ringers 1,000 ML 100 ML IVCONT (12:22)
--- NOTE | 2022-02-26 12:29 | P.CONAN_ITS ---
HPI - Anesthesia Eval Consult details Narrative: 21 F for broncoscopy PMFSH Active Problems Active Problems: All Active Problems (Updated 09/09/21 @ 21:17 by Michael Baldwin MD) Pulmonary nodules (Acute) Mediastinal adenopathy (Acute) GERD (gastroesophageal reflux disease) (Acute) Allergic rhinitis (Acute) Asthma (Acute) Depression with anxiety (Acute) Crohn's disease (Acute) IBS (irritable bowel syndrome) (Acute) Past Medical History Medical History (Updated 09/09/21 @ 21:17 by Michael Baldwin MD) Asthma IBS (irritable bowel syndrome) Pulmonary nodules Functional capacity: independent ambulation Family History Family History Father No problems noted. Mother Brain tumor (benign) Brother Crohn's disease Family history of problems with anesthesia: No Surgical History Surgical History (Updated 08/27/21 @ 09:03 by Nicole Watson MD) History of colonoscopy History of esophagogastroduodenoscopy (EGD) History of tonsillectomy History of Problems with Anesthesia: No Social History Social History Household Members Other:: Boyfriend Alcohol intake: never Patient Tobacco Use Status: Never used Tobacco Second Hand Smoke Exposure: No Use of substances other than those prescribed or required for medical reasons: No Are you DNR?: No Advance Directives: No Advance Directives Information Provided: Yes Current occupational status: employed Current occupation: [employer] work Meds Allergies Allergy/AdvReac Type Severity Reaction Status Date / Time apple [APPLE] Allergy Severe THROAT Verified 02/19/22 15:08 CLOSING hernández Allergy Severe THROAT Verified 02/19/22 15:08 CLOSING kiwi [KIWI] Allergy Severe THROAT Verified 02/19/22 15:08 CLOSING lamotrigine [From LAMICTAL] Allergy Severe HIVES Verified 02/19/22 15:08 peach [[place]] Allergy Severe THROAT Verified 02/19/22 15:08 CLOSING pear [PEAR] Allergy Severe THROAT Verified 02/19/22 15:08 CLOSING plum [PLUM] Allergy Severe THROAT Verified 02/19/22 15:08 CLOSING strawberry [STRAWBERRY] Allergy Severe THROAT Verified 02/19/22 15:08 CLOSING bee pollen [bee stings] Allergy Intermediate Unknown Verified 02/19/22 15:08 Active Medications: Current Medications Lactated Ringer's (Lr) 1,000 mls @ 100 mls/hr IVCONT .Q10H ADELITA Last Admin: 02/26/22 12:22 Dose: 100 mls/hr Home Medications Medication Instructions Recorded Confirmed Last Taken Type albuterol sulfate 0.63 mg/3 mL 0.63 mg inhalation Q4-6H PRN 02/19/22 Unknown History solution for nebulization albuterol sulfate 90 mcg/actuation 2 puff inhalation Q6H PRN 02/19/22 Unknown History aerosol inhaler (ProAir HFA) fluticasone propionate 110 2 puff inhalation BID 02/19/22 Unknown History mcg/actuation HFA aerosol inhaler (Flovent HFA) Exam Exam Date and Time: February 26, 2022 1229 Height,Weight and Vital Signs: Height 5 ft 2 in Weight 72.575 kg Last Vital Signs Temp 97.3 F 02/26/22 12:08 Pulse 88 02/26/22 12:08 Resp 16 02/26/22 12:08 BP 121/72 02/26/22 12:08 Pulse Ox 96 02/26/22 12:08 O2 Del Method 02/26/22 12:08 Pertinent Lab Results Pertinent Lab Results: Laboratory Tests 02/26/22 11:41 Urine Test NEGATIVE Airway Mallampati Class: III TM Dist: >3cm Neck ROM: Full Loose/Missing/Broken Teeth: Yes (Chipped teeth upper ) Heart: S1,S2 Lungs: b/l breath sounds Assessment and Plan Assessment Anesthesia Assessment: Anesthesia Plan Discussed and Chart Reviewed Final Anesthetic Review Family History of Problems with Anesthesia: No History of Problems with Anesthesia: No NPO: Yes ASA Class: II Final Preanesthetic Review: Meds/Allgs Chart Reviewed, Consent Obtained/Reviewed and Anes Risks/Benef Reviewed Patient Risk: Intermediate Procedure Risk: Intermediate Anesthetic Plan Anesthetic Plan: GA Disposition: Standard PACU
[2022-02-26] MEDS: Albuterol/Iprat 2.5/0.5MG 3 ML AMPUL.NEB INHALE (15:51)
[2022-02-27 11:32] LABS: Lymphocytes Bronchial 39 %; Monocytes Bronchial 5 %; RBC Bronchial Washing 15275 MM*3; WBC Bronchial Washing 775 MM*3
[2022-02-27 11:33] LABS: Other Bronchial 56 %
--- NOTE | 2022-02-28 16:58 | P.BOP_ITS ---
Brief Operative Note Date of Service: 02/28/22 Pre-op diagnosis: lymphadenopathy Post-op diagnosis: same Procedure: EBUS with TBNA station 7 and 11L and bronchoscopy with RML biopsies Implants: Surgeon: Michael Baldwin MD Anesthesia: GLMA Was an Steam Cleaning Machine Operator used for this Procedure?: No Estimated blood loss (mL): 0 Pathology: other (FNA LN station 7 and 11L, RML endobronchial bx) Condition: stable Disposition: same day
--- NOTE | 2022-03-01 09:16 | OP_ITS ---
SURGEON: Michael Baldwin MD PREOPERATIVE DIAGNOSIS: Lymphadenopathy and pulmonary nodules. POSTOPERATIVE DIAGNOSIS: Lymphadenopathy and pulmonary nodules. PROCEDURE PERFORMED: Endobronchial ultrasound bronchoscopy with transbronchial needle aspirations of stations 7 and 11L in addition to bronchoscopy with washings and biopsies. ESTIMATED BLOOD LOSS: COMPLICATIONS: ANESTHESIA: LMA. ASSISTANTS: SPECIMENS: ASA CLASSIFICATION: 2. DESCRIPTION OF PROCEDURE: After the patient was adequately sedated, the flexible digital bronchoscope was inserted via the LMA to the level of the vocal cords. The vocal cords moved symmetrically to the midline. After instilling additional lidocaine, the bronchoscope then was passed through the vocal cords to the level of the trachea. Using the EBUS scope, we could use the ultrasound to navigate and visualize the lymph nodes. The patient did have a significantly enlarged subcarinal lymph node measuring about 2.5 cm in size. The patient also had evidence of hilar lymph nodes measuring greater than 1 cm in size. The EBUS scope was navigated to the station 7 area right at the level of the main steven, and using ultrasound guidance, a transbronchial needle aspiration was completed. Specimens were collected and provided to the pathologist who confirmed the presence of lymphocytes and adequate specimens. The specimens were sent both for cytology and for flow cytometry. No evidence of any malignancy. The bronchoscope was then navigated to station 11L where the additional sampling was collected. Again, some sent for flow cytometry. No evidence of any active bleeding. The patient tolerated the fine needle aspirations well. The bronchoscope was then replaced by regular bronchoscopy. The bronchoscope was inserted via the LMA again to the level of the larynx and then the vocal cords were visualized. The bronchoscope was navigated to the entire tracheobronchial tree up to the subsegmental level. The patient did have evidence of bronchitis and thick sticky mucus primarily in the right middle lobe area. The mucosa also appeared to be somewhat inflamed, edematous, although not a typical cobblestoning that we see with sarcoidosis. Using forceps, a couple of biopsies were done at the right middle lobe level. No evidence of any active bleeding. Bronchial washings were also collected for both cytology and microbiology. The bronchoscope was then removed. The total endoscopic time approximately 45 minutes. Patient tolerated the procedure well. Vital signs were stable. No bleeding noted. No complications noted. INTERPRETATION: 1. Successful transbronchial needle aspirations via EBUS of station 7 and 11L. 2. Endobronchial biopsies of the right middle lobe. 3. Bilateral lung washings. Michael aBldwin MD MR/ANA LUISA / [id number]
== END 2022-02-26 16:36 | disposition home or self-care (01) ==
PROVIDERS: Nurse Practitioner; PCP Family Medicine; Visit Provider Hospitalist
PROC: (CPT 31628; principal; 2022-02-26 13:00)
DX: R59.0 Localized enlarged lymph nodes (principal); R91.8 Other nonspecific abnormal finding of lung field; J45.40 Moderate persistent asthma, uncomplicated; J30.2 Other seasonal allergic rhinitis; Z86.16 Personal history of COVID-19; Z91.030 Bee allergy status; Z91.018 Allergy to other foods
CPT/HCPCS: 31628; 31652; 31623; 36415; 81025; 87070; 87205; 88112; 88172; 88173; 88177; 88184; 88185; 88305; 89051; 94640; J0171; J1100; J2250; J2405; J3010

== ENCOUNTER → 2022-03-12 15:08 | Outpatient (BNVA) | payer MEDICAID, SELFPAY | PROVIDERS: PCP Family Medicine; Visit Provider Hospitalist | DX: D86.9 Sarcoidosis, unspecified (principal); R59.0 Localized enlarged lymph nodes; J30.2 Other seasonal allergic rhinitis; J45.40 Moderate persistent asthma, uncomplicated; R91.8 Other nonspecific abnormal finding of lung field | CPT/HCPCS: 99212 ==

== ENCOUNTER 2022-11-15 15:57 | Outpatient (REF) | payer MEDICAID, SELFPAY ==
--- NOTE | ~2022-11-15 | MR_ITS ---
EXAMINATION: MR LUMBAR SPINE WITHOUT CONTRAST CLINICAL INFORMATION: Chronic back pain. COMPARISON: None available. TECHNIQUE: MRI of the lumbar spine was obtained using routine sequences without contrast. FINDINGS: There is moderate disc space narrowing and mild endplate spurring at the L5-S1 level with a shallow, broad-based disc bulge and small annular fissure. Bulging disc mildly impresses upon the S1 nerve roots in the subarticular zones. Mild facet arthropathy present without central canal stenosis. Mild right foraminal narrowing evident as well. The remaining imaged lower thoracic and lumbar discs are well hydrated and normal in appearance without central canal stenosis or foraminal narrowing. Mild leftward lumbar spinal curvature noted. No subluxations are seen. The marrow signal is homogeneous. The distal cord, conus tip, and cauda equina roots are normal. The paraspinal soft tissues are unremarkable. MR/MR lumbar spine wo con IMPRESSION: Moderate degenerative disc disease at the L5-S1 level with a shallow, broad-based disc bulge and small annular fissure. Bulging disc mildly impresses upon the S1 nerve roots in the subarticular zones without central canal stenosis.
== END 2022-11-15 15:58 | disposition home or self-care (01) ==
LOC: HO.MRI 15:57
PROVIDERS: PCP Internal Medicine; Visit Provider Internal Medicine
DX: M54.50 Low back pain, unspecified (principal)
CPT/HCPCS: 72148

== ENCOUNTER → 2022-11-18 13:51 | Outpatient (BNVA) | payer MEDICAID, SELFPAY | PROVIDERS: PCP Internal Medicine; Visit Provider Hospitalist | DX: J45.40 Moderate persistent asthma, uncomplicated (principal); J30.2 Other seasonal allergic rhinitis; R91.8 Other nonspecific abnormal finding of lung field; R59.0 Localized enlarged lymph nodes; D86.9 Sarcoidosis, unspecified | CPT/HCPCS: 99212 ==

== ENCOUNTER 2022-11-20 15:03 | Outpatient (REF) | payer MEDICAID, SELFPAY ==
--- NOTE | ~2022-11-20 | CT_ITS ---
EXAMINATION: CT CHEST WITHOUT CONTRAST CLINICAL INFORMATION: Follow-up nodule COMPARISON: 11/15/2021 TECHNIQUE: Multidetector volumetric CT imaging of the chest was done. Axial MIP volume rendering provided. Sagittal and coronal reformatted images were obtained. This CT examination was performed using dose optimization techniques as appropriate, variously including the following: *Automated exposure control *Adjustment of mA and/or kV according to patient size (this includes techniques or standardized protocols for targeted exams where dose is matched to indication/reason for exam; i.e. extremities or head) *Use of iterative reconstruction technique DLP: 148 mGy-cm FINDINGS: METAL POLISHER: Unremarkable LUNGS: The lungs are clear with no evidence of inflammation or nodules. Seen previously nodules and opacities are resolved. MEDIASTINUM: There is no hilar or mediastinal lymphadenopathy. There is residual thymic tissue is present. CORONARY ARTERY CALCIFICATION: None visualized on this study. PLEURA: There is no pleural effusion. No pleural mass or thickening. AXILLA: No lymphadenopathy. UPPER ABDOMEN: Unremarkable. OSSEOUS STRUCTURES: Unremarkable. CT/CT chest wo IV con IMPRESSION: Resolution of lung nodules. Fleischner guidelines were followed.
== END 2022-11-20 15:04 | disposition home or self-care (01) ==
LOC: HO.CT 15:03
PROVIDERS: PCP Internal Medicine; Visit Provider Hospitalist
DX: R91.8 Other nonspecific abnormal finding of lung field (principal); R59.0 Localized enlarged lymph nodes
CPT/HCPCS: 71250

== ENCOUNTER 2022-12-11 17:00 | Outpatient (RCR) | payer MEDICAID, SELFPAY ==
--- NOTE | 2022-11-07 09:07 | MHC.PT.EP ---
[facility] [place] Office [place] Office [place] Office [address] Rachana Calloway [address] [phone] F: [phone] F: [phone] F: [phone] F: [phone] Physical Therapy Plan of Care Date of Evaluation: Date of Surgery: N/A Diagnosis: M54.50 low back pain, unspecified () Assessment: pt is a 22 y/o female presenting to physical therapy w/ referring diagnosis of M54.50 low back pain, unspecified. Impairments include pain, decreased range of motion, decreased strength, impaired functional mobility, impaired postural awareness, and altered ambulation mechanics. pt is a good candidate for skilled PT due to age, potential remediation of impairments, typical disease/condition progression and prognosis, comorbidities, and motivation. pt would benefit from skilled PT intervention to provide a tailored strengthening and stretching exercise program, functional training, gait training, postural re-training, neuromuscular re-education, modalities as needed for pain, equipment safety demonstration. Frequency and Duration: The patient will be seen 2x/wk for 4 wks Short Term Goals: pt will be I w/ HEP to promote self-management of condition. pt will demo proper sitting posture w/ lumbar roll to promote neutral spine w/ seated ADLs. pt will improve lumbar flexion to at least 75% to promote ease in lower body dressing. Benzene Still Utility Operator Goals: pt will improve standing tolerance w/ neutral pelvis position to 25 minutes to promote improved tolerance to fisheries officer. pt will demo proper lifting techniques w/ 20# object from floor to waist height x5 reps to promote neutral spine w/ lifting. pt will report a statistically significant improvement in self-reported outcome measure, James, to promote return to PLOF. Treatment Plan: Modalities to reduce pain, spasms and effusion. Manual therapy to restore motion and function. Therapeutic exercise to improve strength and flexibility. Neuromuscular re-education for posture and balance. Therapeutic activities to return to functional activities of daily living. Electronically signed by: Bhakti Soriano PT, DPT Please sign and return to therapist. Thank you for your referral.
--- NOTE | 2023-01-06 10:31 | MHC.PT.DC ---
[facility] [place] Office [place] Office [place] Office [address] Rachana Calloway [address] [phone] F: [phone] F: [phone] F: [phone] F: [phone] Physical Therapy Discharge Report Diagnosis: M54.50 low back pain, unspecified (RC) Date of Surgery: N/A Date of Evaluation: 11/06/22 Date of Discharge: 01/06/23 Treatments to Date: 7 Cancellations to Date: 2 No Shows to Date: 3 Discharge Status: Recommend MD Follow-up Visit Non-compliance Discharge Summary: The patient overall was reporting no change in her pain intensity or frequency. She was trialed with core and pelvic stab program, trial lumbar extension progression which caused peripheralization of radicular symptoms, and mechanical lumbar traction which was helpful in the moment. The patient no showed her last three appointments and is being discharged from PT at this time. She was encouraged to follow-up with her primary care to discuss other pain management options. Electronically signed by: Bhakti Gordon PT, DPT Please sign and return to therapist. Thank you for your referral.
== END 2023-01-06 10:31 | disposition home or self-care (01) ==
LOC: HO.PT 17:00
PROVIDERS: PCP Family Medicine; Visit Provider Internal Medicine
DX: M54.50 Low back pain, unspecified (principal)
CPT/HCPCS: 97012; 97110; 97112; 97162

== ENCOUNTER 2023-02-18 15:26 | Outpatient (AMB) | payer OTHER, SELFPAY ==
--- NOTE | 2023-02-18 15:30 | A.OFFVIS_ITS ---
Intake Vital Signs 02/18/23 15:31 Height 5 ft 2 in Weight 155 lb BMI 28.3 BP 131/78 Blood Pressure Location Lt brachial Position Sitting Respiration 14 Pulse 79 Pulse Source Pulse Oximeter Pulse Oximetry (%) 14 L Oxygen Delivery Method Room Air Intake Visit Reasons: CHRONIC BACK PAIN Allergies apple [APPLE] Allergy (Severe, Verified 02/18/23 15:32) THROAT CLOSING hernández Allergy (Severe, Verified 02/18/23 15:32) THROAT CLOSING kiwi [KIWI] Allergy (Severe, Verified 02/18/23 15:32) THROAT CLOSING lamotrigine [From LAMICTAL] Allergy (Severe, Verified 02/18/23 15:32) HIVES peach [[place]] Allergy (Severe, Verified 02/18/23 15:32) THROAT CLOSING pear [PEAR] Allergy (Severe, Verified 02/18/23 15:32) THROAT CLOSING plum [PLUM] Allergy (Severe, Verified 02/18/23 15:32) THROAT CLOSING strawberry [STRAWBERRY] Allergy (Severe, Verified 02/18/23 15:32) THROAT CLOSING bee pollen [bee stings] Allergy (Intermediate, Verified 02/18/23 15:32) Unknown Medication List - Last Reconciled 02/18/23 by Connie Hernadez LPN albuterol sulfate 0.63 mg inhalation Q4-6H PRN albuterol sulfate 90 mcg/actuation (ProAir HFA) 2 puffs inhalation Q6H PRN budesonide-formoterol 160-4.5 mcg/actuation (Symbicort) 2 puffs inhalation BID 30 days xiifrjbwnd-orwaxygc-ouvfkxwkkh 160-9-4.8 mcg/actuation (Breztri Aerosphere) 2 inhalations inhalation BID 30 days rhpeawelcv-nbapjvxmljnea-yunm 50-300-40 mg (Fioricet) 1 cap PO Q4-6H PRN fluticasone propionate 110 mcg/actuation (Flovent HFA) 2 puffs inhalation BID nebulizers As directed tiotropium bromide 2.5 mcg/actuation (Spiriva Respimat) 2 puffs inhalation DAILY 30 days HPI HPI Comments History of Present Illness Details Clover is a very pleasant 22-year-old female who presents to the office today for evaluation management of her ongoing bilateral lower back pain. Patient reports she has been suffering with this pain for approximately 2 years though it has progressively worsened over the last 6 months. 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 She reports pain across her lower back with intermittent radiation into her buttocks bilaterally. She denies radiation of the pain down either leg. Pain today is rated 6/10, stabbing and aching. Pain is worse with sitting, standing, climbing stairs and laying on either side. Patient completed physical therapy approximately 1.5 months ago without improvement in her symptoms. She attempted manual manipulation with chiropractor approximately 1.5 years ago but reports that this exacerbated her pain. She has tried nonsteroidal anti-inflammatory medication and topical lidocaine gel with no relief. Recent MRI reviewed with patient, results as per below. In terms of muscle damage condition is described as aching, stabbing. Pain is negatively impacting patient's general activity, normal work, sleep and walking. She denies red flag symptoms including loss of bowel, bladder or saddle anesthesia. Patient denies implantable devices, pacemaker or defibrillator. [facility] Medical History (Updated 02/18/23 @ 16:17 by Cindy Jama APRN, TRANSFER AGENT) Sarcoidosis Pulmonary nodules Asthma IBS (irritable bowel syndrome) Surgical History (Updated 08/27/21 @ 09:03 by Nicole Watson MD) History of esophagogastroduodenoscopy (EGD) History of colonoscopy History of tonsillectomy Family History Father No problems noted. Mother Brain tumor (benign) Brother Crohn's disease Social History Household Members Other:: Boyfriend Alcohol intake: never Patient Tobacco Use Status: Never used Tobacco Second Hand Smoke Exposure: No Current occupational status: employed Current occupation: [employer] Physical Exam Vital Signs: Last Vital Signs Pulse 79 02/18/23 15:31 Resp 14 02/18/23 15:31 BP 131/78 02/18/23 15:31 Pulse Ox 14 L 02/18/23 15:31 Oxygen Delivery Method Room Air 02/18/23 15:31 BMI result Body Mass Index 28.3 General: awake, alert, oriented. Answers questions appropriately. Fully engaged in examination. Skin: warm, dry, intact HEENT: Normocephalic. Hearing intact. Cardiac: External chest normal in appearance. Respiratory: No cough, audible wheezing or stridor. Abdomen: without gross distension. Neurological: Oriented to person, place, time and situation. Thought process intact. No gait abnormalities appreciated. Psychiatric: Appropriate mood and affect. Good judgment and insight. Back/Spine/Pelvis Other: Lumbar exam: Able to stand on bilateral tiptoes and bilateral heels. Able to transition from sit to stand unassisted. Ambulates with bilaterally normal heel strike and toe off Visual inspection without gross abnormality Tender to palpation over bilateral PSIS ROM: extension to 15 degrees. flexion to 60 degrees Strength: 5/5 BLE Sensation: intact and symmetric BLE DTR: intact and symmetric Straight leg raises with and without dorsiflexion negative bilaterally Facet loading positive bilaterally ELOISA positive bilaterally Gaenslens positive bilaterally Thigh thrust positive bilaterally SI compression positive bilaterally Results Reviewed Results Reviewed: 11/15/22 EXAMINATION: MR LUMBAR SPINE WITHOUT CONTRAST FINDINGS: There is moderate disc space narrowing and mild endplate spurring at the L5-S1 level with a shallow, broad-based disc bulge and small annular fissure. Bulging disc mildly impresses upon the S1 nerve roots in the subarticular zones. Mild facet arthropathy present without central canal stenosis. Mild right foraminal narrowing evident as well. The remaining imaged lower thoracic and lumbar discs are well hydrated and normal in appearance without central canal stenosis or foraminal narrowing. Mild leftward lumbar spinal curvature noted. No subluxations are seen. The marrow signal is homogeneous. The distal cord, conus tip, and cauda equina roots are normal. The paraspinal soft tissues are unremarkable. IMPRESSION: Moderate degenerative disc disease at the L5-S1 level with a shallow, broad-based disc bulge and small annular fissure. Bulging disc mildly impresses upon the S1 nerve roots in the subarticular zones without central canal stenosis. Assessment & Plan Assessment & Plan (1) Facet arthritis of lumbar region: Code(s): M47.816 - Spondylosis without myelopathy or radiculopathy, lumbar region (2) Sacroiliac joint dysfunction of both sides: Code(s): M53.3 - Sacrococcygeal disorders, not elsewhere classified Plan Clover is a very pleasant 22-year-old female presented to the office today for evaluation and management of her ongoing lower back pain. History, physical exam and provocative testing consistent with bilateral sacroiliac joint dysfunction and lumbar facet arthropathy. Patient has exhausted conservative treatment including physical therapy, home exercise program, topical lidocaine gel and nonsteroidal anti-inflammatory medications. Discussed options for treatment including diagnostic interventional testing, steroid injections, peripheral nerve stimulation with Sprint, RFA and more permanent neuromodulation. Prescription for tizanidine 2 mg p.o. t.i.d. as needed for muscle spasm. Patient advised on risks and cautions including do not drive, take with alcohol or take with other DIRECTOR OF PROMOTIONS depressants. Will schedule patient for fluoroscopy guided bilateral diagnostic sacroiliac joint injections with local anesthetic. If patient reports positive results of diagnostic injections will plan for bilateral therapeutic sacroiliac joint injections. If patient does not receive adequate pain relief with diagnostic SI joint injections will plan for Fluoroscopy Guided Diagnostic L3, L4 DR L5 MBB's with local anesthetic. All questions and concerns have been answered and patient agrees with the plan. Follow up after injections and sooner if needed. Medications: New tizanidine as needed. do not take with fioricet 2 mg PO TID PRN 30 tabs 0RF muscle spasticity Coding Level of Care Code New Pt Level 4 (59606) Diagnoses Facet arthritis of lumbar region M47.816 Sacroiliac joint dysfunction of both sides M53.3
[2023-02-18 15:31] VITALS: BP 131/78; PULSE 79; RESP 14; O2SAT 14; BMI 28.3
== END 2023-02-18 16:04 | disposition home or self-care (01) ==
PROVIDERS: PCP General Practice; Visit Provider Registered Nurse Emergency
DX: M47.816 Spondylosis without myelopathy or radiculopathy, lumbar region (principal); M53.3 Sacrococcygeal disorders, not elsewhere classified
CPT/HCPCS: 99204

== ENCOUNTER → 2023-02-18 15:26 | Outpatient (BNVA) | payer OTHER, SELFPAY | PROVIDERS: PCP General Practice; Visit Provider Registered Nurse Emergency ==

== ENCOUNTER 2023-02-24 15:24 | Outpatient (AMB) | payer OTHER, SELFPAY ==
[2023-02-24 15:26] VITALS: BP 117/72; PULSE 76; O2SAT 98; BMI 30.4
--- NOTE | 2023-02-24 15:26 | MHC.OFFVIS ---
Intake Vital Signs 02/24/23 15:26 Height 5 ft 2 in Weight 166 lb 7.184 oz BMI 30.4 BP 117/72 Blood Pressure Location Lt brachial Position Sitting Pulse 76 Pulse Source Doppler Pulse Oximetry (%) 98 Oxygen Delivery Method Room Air Intake Visit Reasons: Sarcoidosis Allergies apple [APPLE] Allergy (Severe, Verified 02/24/23 15:39) THROAT CLOSING hernández Allergy (Severe, Verified 02/24/23 15:39) THROAT CLOSING kiwi [KIWI] Allergy (Severe, Verified 02/24/23 15:39) THROAT CLOSING lamotrigine [From LAMICTAL] Allergy (Severe, Verified 02/24/23 15:39) HIVES peach [[place]] Allergy (Severe, Verified 02/24/23 15:39) THROAT CLOSING pear [PEAR] Allergy (Severe, Verified 02/24/23 15:39) THROAT CLOSING plum [PLUM] Allergy (Severe, Verified 02/24/23 15:39) THROAT CLOSING strawberry [STRAWBERRY] Allergy (Severe, Verified 02/24/23 15:39) THROAT CLOSING bee pollen [bee stings] Allergy (Intermediate, Verified 02/24/23 15:39) Unknown HPI HPI Comments History of Present Illness Details The patient is a 22-year-old woman with a known history of asthma who apparently in beginning of the year developed COVID-19. The patient was treated at home. She recovered although her asthma has been more active. She has been having increasing shortness of breath and chest tightness on a daily basis. She has been using her rescue medications. The patient also has a lot of allergies. Therefore now transitioning to the springtime causes her symptoms to worsen. In the meantime the patient developed of severe headache that brought her to the [facility] ED for further evaluation there she had a CT scan of the brain and of the neck which demonstrated pulmonary nodules in addition to that she had a CT scan of the abdomen and pelvis that demonstrated pulmonary nodules that the bases and also some para-aortic lymph nodes. She was referred to Oncology Hematology. Subsequently referred to Pulmonary. The patient denies any weight loss or night sweats. Her appetite is good. She denies any bones or lumps anywhere in her body. Her weight has been stable. The only thing has been that she has had increasing respiratory complaints due to her worsening asthma. I did review her CT scan of the chest with her and her significant other. The patient does have some mediastinal hilar lymphadenopathy but not extensive at this time. Patient also has a ground-glass the nodular density in the right right hemithorax hemithorax and also some other areas of ground-glass areas. At this point it is hard to know if these findings are due to her recent COVID infection. Therefore, will treat her for her asthma symptoms request additional blood work and then will repeat her CT scan with hopes that does changes are transient and see that the improved. However, if the findings are still present then additional diagnostic interventions will be required. 02/19/2022 the patient is here for a pulmonary follow-up visit. Patient apparently had a asthma flare-up and she went to urgent care. She was placed on additional Flovent. Seems like she is doing a little better although she is to using her rescue inhaler more than twice a week. Therefore she did return to be evaluated. during the last visit we did do blood work including allergy testing demonstrating significant allergens to a lot of the environmental panel. In the meantime the patient had a repeat CT scan sometime in November. She was lost to follow-up for bit. It appears that she has still persistent lymphadenopathy in addition to pulmonary nodules. In view of her persistent symptoms we talked about potentially sampling the lymph nodes to make sure that we can not rule out malignant processes and also to assess for inflammatory conditions such as sarcoidosis. Explained to the patient that there are conditions that inflammatory that can mimic asthma such as sarcoid. 03/12/2022 the patient is here for a pulmonary follow-up visit. The patient is status post bronchoscopy. The fine-needle aspirate of her lymph nodes did demonstrate evidence of granulomas. She will that for any infectious processes. Therefore this is consistent with sarcoidosis. Patient does not have any evidence of any extrapulmonary manifestations this time. She does have underlying asthma and we did talk about the possibility of endobronchial sarcoidosis which may mimic asthma. Her endobronchial biopsies were negative for any granulomas however. She was prescribed Symbicort but she has not started as of yet. She has been using Flovent. Seems like she is still having symptoms of shortness of breath and chest tightness. I did encourage her to start the Symbicort because she will potentially feel better with that inhaler since is stepping therapy. If the patient does not feel any better with the Symbicort she can call and we can reassess. We did talk about the importance of assessing for extrapulmonary manifestations in which we can do with blood work and also she needs to have an eye exam done. We had checked her Ugo level during the last visit and that was negative. This just needs that Ugo is not a good way of following any evidence of any active sarcoid for her. The patient does not need treatment. We did talk about potential treatment with prednisone if her symptoms were to worsen. Will plan to follow-up with her in 6 months with a repeat CT scan and she will undergo blood work. If her blood work is abnormal I would letter now and will come up with further recommendations based on that forthcoming data. 11/18/2022 the patient is here for a pulmonary follow-up visit. The patient continues to have on and off days. Over the weekend she had a hard time with her breathing felt significant shortness of breath difficult for her to do her activities of daily living. And today she actually feels a little better. She still the Symbicort although not completely effective for her. If she does have a rescue inhaler. Will go ahead and tried a maximize her respiratory therapy by switching or over through breast tree. Hopefully this works a little better. She also has significant allergies noted by her allergy testing. The patient also had diagnosis of sarcoidosis, biopsy-proven. Will repeat her CT scan because of her underlying pulmonary nodules. If they nodules in the lymph nodes appear to be worsen then will consider therapy for the sarcoidosis. 02/24/2023 the patient is here for pulmonary follow-up visit. The patient overall is feeling better. She is not using her maintenance inhaler anymore. she does use her rescue inhaler around 1 to 2 times a week. This has been effective for her. She wants to minimize the steroid use. She understands that she develops worsening symptoms she is to Go back on her maintenance inhaler. The patient did have a CT scan of the chest that was personally by us. It appears that her nodular densities have completely resolved which is very reassuring. The patient is very happy. Therefore, likely that her sarcoidosis has become quiescent. Explained to her that sarcoidosis could come back but at this point it is stable. She needs to have her eyes checked to make sure that is no evidence of any sarcoid there. At this point since the patient is doing better will go ahead and follow-up with her in 1 year with pulmonary function studies. If the patient develops any worsening symptoms prior to that she is to call the office for an earlier assessment. [facility] Medical History (Updated 02/24/23 @ 23:24 by Michael Baldwin MD) Sarcoidosis Pulmonary nodules Asthma IBS (irritable bowel syndrome) Surgical History (Updated 08/27/21 @ 09:03 by Nicole Watson MD) History of esophagogastroduodenoscopy (EGD) History of colonoscopy History of tonsillectomy Family History Father No problems noted. Mother Brain tumor (benign) Brother Crohn's disease Social History Household Members Other:: Boyfriend Alcohol intake: never Patient Tobacco Use Status: Never used Tobacco Second Hand Smoke Exposure: No Current occupational status: employed Current occupation: [employer] Const Denies fatigue, Denies fever(s), Denies night sweats, Denies poor appetite and Denies weight loss Eyes Reports requires corrective lenses ENT Denies dental pain, Denies dysphagia, Denies hearing loss, Denies mouth pain, Denies odynophagia, Denies throat swelling and Denies tongue swelling Card Reports no additional complaints, Denies chest pain and Denies dyspnea on exertion Resp Reports cough, Denies dyspnea on exertion and Denies wheezing GI Denies abdominal pain, Denies melena, Reports bloating, Denies hematochezia, Denies constipation, Reports GI cramping, Denies dysphagia, Denies excessive flatus, Denies early satiety, Reports heartburn, Denies diarrhea, Denies nausea, Denies odynophagia, Denies vomiting and Denies hematemesis Musc Reports no additional complaints Skin/Breast Denies pruritus, Denies lesions, Denies rash and Denies jaundice Neuro Reports no additional complaints Endo Denies fatigue Adam/Lymph Denies easy bleeding, Denies easy bruising and Denies lymphadenopathy Aller/Immun Denies throat swelling, Denies tongue swelling and Denies wheezing Physical Exam Vital Signs: Last Vital Signs Pulse 76 02/24/23 15:26 BP 117/72 02/24/23 15:26 Pulse Ox 98 02/24/23 15:26 Oxygen Delivery Method Room Air 02/24/23 15:26 BMI result Body Mass Index 30.4 Const General: alert Neck Neck: Yes normal visual inspection, Yes full ROM and Yes no lymphadenopathy Chest Chest palpation & inspection: normal inspection of the chest Resp Effort & Inspection: normal respiratory effort Auscultation: clear to auscultation bilaterally and no wheezes Cardio Rate: regular rate Rhythm: regular rhythm Heart sounds: S1 normal heart sound present and S2 normal heart sound present GI Palpation (GI): Soft to palpation and nontender Auscultation: normal bowel sounds Skin General skin exam: rashes and/or lesions noted Assessment & Plan Assessment & Plan (1) Sarcoidosis: Comment: Stage 2 Code(s): D86.9 - Sarcoidosis, unspecified (2) Mediastinal adenopathy: Code(s): R59.0 - Localized enlarged lymph nodes (3) Allergic rhinitis: Code(s): J30.9 - Allergic rhinitis, unspecified Qualifiers: Allergic rhinitis seasonality: seasonal Allergic rhinitis trigger: unspecified Qualified Code(s): J30.2 - Other seasonal allergic rhinitis (4) Asthma: Code(s): J45.909 - Unspecified asthma, uncomplicated Qualifiers: Asthma complication type: uncomplicated Asthma persistence: persistent Asthma severity: moderate Qualified Code(s): J45.40 - Moderate persistent asthma, uncomplicated (5) Pulmonary nodules: Comment: resolved on resent CT chest Code(s): R91.8 - Other nonspecific abnormal finding of lung field Plan hold Breztri continue singular continue BERNICE as needed Needs an eye exam to r/o Uveitis PFTs in 1 year F/U 1 yr or sooner if any symptoms arise Orders: Orders PFT pulmonary function test 364 Days J45.40 - Moderate persistent asthma, uncomplicated Coding Level of Care Code Est Pt Level 4 (98450) Diagnoses Sarcoidosis D86.9 Mediastinal adenopathy R59.0 Seasonal allergic rhinitis, unspecified trigger J30.2 Allergic rhinitis seasonality: seasonal Allergic rhinitis trigger: unspecified Moderate persistent asthma without complication J45.40 Asthma complication type: uncomplicated Asthma persistence: persistent Asthma severity: moderate Pulmonary nodules R91.8 Time Spent (min) 17
== END 2023-02-24 16:06 | disposition home or self-care (01) ==
PROVIDERS: PCP General Practice; Visit Provider Hospitalist
DX: D86.9 Sarcoidosis, unspecified (principal); R59.0 Localized enlarged lymph nodes; J30.2 Other seasonal allergic rhinitis; J45.40 Moderate persistent asthma, uncomplicated; R91.8 Other nonspecific abnormal finding of lung field
CPT/HCPCS: 99214

== ENCOUNTER → 2023-02-24 15:24 | Outpatient (BNVA) | payer OTHER, SELFPAY | PROVIDERS: PCP General Practice; Visit Provider Hospitalist | DX: D86.9 Sarcoidosis, unspecified (principal); J45.40 Moderate persistent asthma, uncomplicated; J30.2 Other seasonal allergic rhinitis; R91.8 Other nonspecific abnormal finding of lung field; R59.0 Localized enlarged lymph nodes | CPT/HCPCS: 99212 ==

== ENCOUNTER 2023-03-04 06:08 | Outpatient (REF) | payer OTHER, SELFPAY ==
--- NOTE | ~2023-03-04 | FL_ITS ---
EXAMINATION: XR FLUOROSCOPY WITH IMAGES CLINICAL INFORMATION: Sacrococcygeal disorders, not elsewhere classified. COMPARISON: None available. TECHNIQUE: Fluoroscopy Supervised By: Dr. Christopher Fleming. Fluoroscopy Time: 0.2 minutes. Cumulative Dose: 2.88 mGy. DAP: 0.786 Gycm2. Images: 2. FINDINGS: Images demonstrate needle placement and contrast injection over the bilateral sacroiliac joints FL/FL guidance in treatment room IMPRESSION: Fluoroscopy guidance for pain management procedure
== END 2023-03-04 06:09 | disposition home or self-care (01) ==
LOC: CF 06:08
PROVIDERS: Visit Provider Anesthesiology
DX: M53.3 Sacrococcygeal disorders, not elsewhere classified (principal); M47.816 Spondylosis without myelopathy or radiculopathy, lumbar region
CPT/HCPCS: 27096; J2795

== ENCOUNTER 2023-03-04 14:33 | Outpatient (AMB) | payer OTHER, SELFPAY ==
[2023-03-04 15:15] VITALS: BP 116/80; PULSE 72; RESP 16; O2SAT 100; BMI 30.4
--- NOTE | 2023-03-04 15:15 | MHC.OFFVIS ---
Intake Vital Signs 03/04/23 15:15 03/04/23 15:17 Height 5 ft 2 in 5 ft 2 in Weight 166 lb 166 lb BMI 30.4 30.4 BP 116/80 118/74 Blood Pressure Location Lt brachial Rt brachial Position Sitting Sitting Respiration 16 16 Pulse 72 91 Pulse Source Pulse Oximeter Pulse Oximeter Pulse Oximetry (%) 100 94 Oxygen Delivery Method Room Air Room Air Comment pre-op pre-op Intake Visit Reasons: BILAT DX SIJ INJ/LOCAL Allergies apple [APPLE] Allergy (Severe, Verified 03/04/23 15:18) THROAT CLOSING hernández Allergy (Severe, Verified 03/04/23 15:18) THROAT CLOSING kiwi [KIWI] Allergy (Severe, Verified 03/04/23 15:18) THROAT CLOSING lamotrigine [From LAMICTAL] Allergy (Severe, Verified 03/04/23 15:18) HIVES peach [[place]] Allergy (Severe, Verified 03/04/23 15:18) THROAT CLOSING pear [PEAR] Allergy (Severe, Verified 03/04/23 15:18) THROAT CLOSING plum [PLUM] Allergy (Severe, Verified 03/04/23 15:18) THROAT CLOSING strawberry [STRAWBERRY] Allergy (Severe, Verified 03/04/23 15:18) THROAT CLOSING bee pollen [bee stings] Allergy (Intermediate, Verified 03/04/23 15:18) Unknown [facility] Medical History (Updated 02/24/23 @ 23:24 by Michael Baldwin MD) Sarcoidosis Pulmonary nodules Asthma IBS (irritable bowel syndrome) Surgical History (Updated 08/27/21 @ 09:03 by Nicole Watson MD) History of esophagogastroduodenoscopy (EGD) History of colonoscopy History of tonsillectomy Family History Father No problems noted. Mother Brain tumor (benign) Brother Crohn's disease Social History Household Members Other:: Boyfriend Alcohol intake: never Patient Tobacco Use Status: Never used Tobacco Second Hand Smoke Exposure: No Current occupational status: employed Current occupation: [employer] work Assessment & Plan Assessment & Plan (1) Facet arthritis of lumbar region: Code(s): M47.816 - Spondylosis without myelopathy or radiculopathy, lumbar region (2) Sacroiliac joint dysfunction of both sides: Code(s): M53.3 - Sacrococcygeal disorders, not elsewhere classified Plan Bilateral diagnostic sacroiliac joint injection. Informed consent was explained thoroughly to the patient. All questions about benefits and risks for the procedure were answered. Patient came to the operating room and was positioned prone on the operating table with the pillow under the pelvis. Time out was performed delineating name and of the patient, allergies and the nature of the procedure. The lower back and buttocks of the patient were prepped with ChloraPrep prepped and draped with sterile utility towels. C-arm was brought over the operating field and sq picture of patient's pelvis was demonstrated on the screen. For the right joint tilting C-arm contralateral to the site of the joint the most posterior portion of the joints was superimposed with anterior silhouette of the joint. Skin was injected in the projection of the joint slightly medial to the location of the joint with 25 gauge 1/2 inch needle using local lidocaine 2% .After that 22 gauge 3 and 1/2 inch needle was driven to the right joint in tunnel vision fashion. When needle entered the joint capsule injection of the contrast was performed demonstrating intra-articular and minimally periarticular spread of the contrast. After that 4 cc. of ropivacaine 0.5% was injected into the joint. Upon completion of the injections the needle was removed and the procedure was repeated on the opposite side in the mirroring fashion. The needle was removed and sterile dressing was applied. Upon completion of the injection patient was taken outside of the operating room to the recovery room where recovered uneventfully. Orders: Orders FL guidance in treatment room Today M53.3 - Sacrococcygeal disorders, not elsewhere classified Coding Level of Care Code Procedure Only Diagnoses Facet arthritis of lumbar region M47.816 Sacroiliac joint dysfunction of both sides M53.3
[2023-03-04 15:17] VITALS: BP 118/74; PULSE 91; RESP 16; O2SAT 94; BMI 30.4
== END 2023-03-04 15:53 | disposition home or self-care (01) ==
LOC: HO.PMCPRC 14:33
PROVIDERS: PCP General Practice; Visit Provider Anesthesiology
DX: M53.3 Sacrococcygeal disorders, not elsewhere classified (principal)
CPT/HCPCS: 27096

== ENCOUNTER 2023-03-06 15:23 | Outpatient (AMB) | payer OTHER, SELFPAY ==
[2023-03-06 15:30] VITALS: BP 124/66; PULSE 73; RESP 16; O2SAT 100; BMI 30.4
--- NOTE | 2023-03-06 15:30 | MHC.OFFVIS ---
Intake Vital Signs 03/06/23 15:30 Height 5 ft 2 in Weight 166 lb BMI 30.4 BP 124/66 Blood Pressure Location Lt brachial Position Sitting Respiration 16 Pulse 73 Pulse Source Pulse Oximeter Pulse Oximetry (%) 100 Oxygen Delivery Method Room Air Intake Visit Reasons: BILAT DX SIJ INJ 03/04/23/CONFIRMED Allergies apple [APPLE] Allergy (Severe, Verified 03/06/23 15:32) THROAT CLOSING hernández Allergy (Severe, Verified 03/06/23 15:32) THROAT CLOSING kiwi [KIWI] Allergy (Severe, Verified 03/06/23 15:32) THROAT CLOSING lamotrigine [From LAMICTAL] Allergy (Severe, Verified 03/06/23 15:32) HIVES peach [[place]] Allergy (Severe, Verified 03/06/23 15:32) THROAT CLOSING pear [PEAR] Allergy (Severe, Verified 03/06/23 15:32) THROAT CLOSING plum [PLUM] Allergy (Severe, Verified 03/06/23 15:32) THROAT CLOSING strawberry [STRAWBERRY] Allergy (Severe, Verified 03/06/23 15:32) THROAT CLOSING bee pollen [bee stings] Allergy (Intermediate, Verified 03/06/23 15:32) Unknown HPI HPI Comments History of Present Illness Details Clover presents back to the office today for follow up 2 says s/p bilateral diagnostic SIJ injections. Patient reports no relief from her pain in the hours after the injections. She states she tried to do activities around the house and was not able to d/t her pain. She continues to report lower back pain with some radiation across lower ngozi, into the buttocks and around to the groin. She denies radiation down legs. Denies red flag symptoms including loss of bowel, bladder or saddle anesthesia. Prior: Clover is a very pleasant 22-year-old female who presents to the office today for evaluation management of her ongoing bilateral lower back pain. Patient reports she has been suffering with this pain for approximately 2 years though it has progressively worsened over the last 6 months. 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 She reports pain across her lower back with intermittent radiation into her buttocks bilaterally. She denies radiation of the pain down either leg. Pain today is rated 6/10, stabbing and aching. Pain is worse with sitting, standing, climbing stairs and laying on either side. Patient completed physical therapy approximately 1.5 months ago without improvement in her symptoms. She attempted manual manipulation with chiropractor approximately 1.5 years ago but reports that this exacerbated her pain. She has tried nonsteroidal anti-inflammatory medication and topical lidocaine gel with no relief. Recent MRI reviewed with patient, results as per below. In terms of muscle damage condition is described as aching, stabbing. Pain is negatively impacting patient's general activity, normal work, sleep and walking. She denies red flag symptoms including loss of bowel, bladder or saddle anesthesia. Patient denies implantable devices, pacemaker or defibrillator. [facility] Medical History (Updated 02/24/23 @ 23:24 by Michael Baldwin MD) Sarcoidosis Pulmonary nodules Asthma IBS (irritable bowel syndrome) Surgical History (Updated 08/27/21 @ 09:03 by Nicole Watson MD) History of esophagogastroduodenoscopy (EGD) History of colonoscopy History of tonsillectomy Family History Father No problems noted. Mother Brain tumor (benign) Brother Crohn's disease Social History Household Members Other:: Boyfriend Alcohol intake: never Patient Tobacco Use Status: Never used Tobacco Second Hand Smoke Exposure: No Current occupational status: employed Current occupation: [employer] Review of Systems Const All systems reviewed & are unremarkable except as noted in HPI and below Physical Exam Vital Signs: Last Vital Signs Pulse 73 03/06/23 15:30 Resp 16 03/06/23 15:30 BP 124/66 03/06/23 15:30 Pulse Ox 100 03/06/23 15:30 Oxygen Delivery Method Room Air 03/06/23 15:30 BMI result Body Mass Index 30.4 General: awake, alert, oriented. Answers questions appropriately. Fully engaged in examination. Skin: warm, dry, intact HEENT: Normocephalic. Hearing intact. Cardiac: External chest normal in appearance. Respiratory: No cough, audible wheezing or stridor. Abdomen: without gross distension. Neurological: Oriented to person, place, time and situation. Thought process intact. No gait abnormalities appreciated. Psychiatric: Appropriate mood and affect. Good judgment and insight. Back/Spine/Pelvis Other: Lumbar exam: Able to stand on bilateral tiptoes and bilateral heels. Able to transition from sit to stand unassisted. Ambulates with bilaterally normal heel strike and toe off Visual inspection without gross abnormality Tender to palpation over lumbar vertebrae and lumbar paraspinal muscles Straight leg raises with and without dorsiflexion negative bilaterally Facet loading positive bilaterally ELOISA positive bilaterally Results Reviewed Results Reviewed: 11/15/22 EXAMINATION: MR LUMBAR SPINE WITHOUT CONTRAST FINDINGS: There is moderate disc space narrowing and mild endplate spurring at the L5-S1 level with a shallow, broad-based disc bulge and small annular fissure. Bulging disc mildly impresses upon the S1 nerve roots in the subarticular zones. Mild facet arthropathy present without central canal stenosis. Mild right foraminal narrowing evident as well. The remaining imaged lower thoracic and lumbar discs are well hydrated and normal in appearance without central canal stenosis or foraminal narrowing. Mild leftward lumbar spinal curvature noted. No subluxations are seen. The marrow signal is homogeneous. The distal cord, conus tip, and cauda equina roots are normal. The paraspinal soft tissues are unremarkable. IMPRESSION: Moderate degenerative disc disease at the L5-S1 level with a shallow, broad-based disc bulge and small annular fissure. Bulging disc mildly impresses upon the S1 nerve roots in the subarticular zones without central canal stenosis. Assessment & Plan Assessment & Plan (1) Facet arthritis of lumbar region: Code(s): M47.816 - Spondylosis without myelopathy or radiculopathy, lumbar region (2) Sacroiliac joint dysfunction of both sides: Code(s): M53.3 - Sacrococcygeal disorders, not elsewhere classified Plan Clover is a very pleasant 22-year-old female presented to the office today for follow up 2 days s/p diagnostic SIJ injections. Given lack of benefit from diagnostic SIJ injections, will forego SIJ therapeutic as this does not appear to be patient's main pain generator. Patient today complaining of pain, worse with palpation over midline lumbar vertebrae consistent with lumbar spondylosis without radiculopathy. Patient has exhausted conservative treatment including physical therapy, home exercise program, topical lidocaine gel and nonsteroidal anti-inflammatory medications. Discussed options for treatment including diagnostic interventional testing, steroid injections, peripheral nerve stimulation with Sprint, RFA and more permanent neuromodulation. Will schedule patient for Fluoroscopy Guided Diagnostic L3, L4 DR L5 MBB's with local anesthetic. Ativan 0.5mg #2 tabs sent to pharmacy for procedure. One tab under the tongue 1 hour prior to the procedure. May repeat on arrival to the hospital. Patient aware that she needs to have someone drive her to and from the procedure if she takes the ativan. All questions and concerns have been answered and patient agrees with the plan. Follow up after injections and sooner if needed. Medications: New lorazepam One tab under the tongue 1 hour prior to the procedure. May repeat on arrival to the hospital. 0.5 mg sublingual ONCE 2 tabs 0RF anxiety Coding Level of Care Code Est Pt Level 4 (98162) Diagnoses Facet arthritis of lumbar region M47.816 Sacroiliac joint dysfunction of both sides M53.3
== END 2023-03-06 16:12 | disposition home or self-care (01) ==
PROVIDERS: PCP General Practice; Visit Provider Registered Nurse Emergency
DX: M47.816 Spondylosis without myelopathy or radiculopathy, lumbar region (principal); M53.3 Sacrococcygeal disorders, not elsewhere classified
CPT/HCPCS: 99214

== ENCOUNTER → 2023-03-06 15:23 | Outpatient (BNVA) | payer OTHER, SELFPAY | PROVIDERS: PCP General Practice; Visit Provider Registered Nurse Emergency | DX: M47.816 Spondylosis without myelopathy or radiculopathy, lumbar region (principal); M53.3 Sacrococcygeal disorders, not elsewhere classified; Z98.890 Other specified postprocedural states | CPT/HCPCS: 99212 ==

== ENCOUNTER 2023-04-15 06:09 | Outpatient (REF) | payer OTHER, SELFPAY ==
--- NOTE | ~2023-04-15 | FL_ITS ---
EXAMINATION: XR FLUOROSCOPY WITH IMAGES CLINICAL INFORMATION: Spondylosis without myelopathy or radiculopathy, lumbar region. COMPARISON: None available. TECHNIQUE: Fluoroscopy Supervised By: Dr. Gaona Fluoroscopy Time: 0.5 minutes. Cumulative Dose: 8.32 mGy. DAP: 0.117 Gycm2. Images: 6. FINDINGS: Images demonstrate needle placement and contrast injection adjacent to the bilateral lateral L3, L4 and L5 vertebrae FL/FL guidance in treatment room IMPRESSION: Fluoroscopic guidance for pain management procedure.
== END 2023-04-15 06:10 | disposition home or self-care (01) ==
LOC: CF 06:09
PROVIDERS: Visit Provider Anesthesiology
DX: M47.816 Spondylosis without myelopathy or radiculopathy, lumbar region (principal); M53.3 Sacrococcygeal disorders, not elsewhere classified
CPT/HCPCS: 64493; 64494; J2795; Q9967

== ENCOUNTER 2023-04-15 14:09 | Outpatient (AMB) | payer OTHER, SELFPAY ==
[2023-04-15 15:46] VITALS: BP 118/70; PULSE 76; RESP 16; O2SAT 98; BMI 30.4
--- NOTE | 2023-04-15 15:46 | A.OFFVIS_ITS ---
Intake Vital Signs 04/15/23 15:46 04/15/23 15:48 Height 5 ft 2 in 5 ft 2 in Weight 166 lb 166 lb BMI 30.4 30.4 BP 118/70 122/60 Blood Pressure Location Lt brachial Lt brachial Position Sitting Sitting Respiration 16 16 Pulse 76 81 Pulse Source Pulse Oximeter Pulse Oximeter Pulse Oximetry (%) 98 100 Oxygen Delivery Method Room Air Room Air Comment pre-op post-op Intake Visit Reasons: BILAT DX L3-L4-DRL5 MBB/LOCAL Allergies apple [APPLE] Allergy (Severe, Verified 04/15/23 15:50) THROAT CLOSING hernández Allergy (Severe, Verified 04/15/23 15:50) THROAT CLOSING kiwi [KIWI] Allergy (Severe, Verified 04/15/23 15:50) THROAT CLOSING lamotrigine [From LAMICTAL] Allergy (Severe, Verified 04/15/23 15:50) HIVES peach [[place]] Allergy (Severe, Verified 04/15/23 15:50) THROAT CLOSING pear [PEAR] Allergy (Severe, Verified 04/15/23 15:50) THROAT CLOSING plum [PLUM] Allergy (Severe, Verified 04/15/23 15:50) THROAT CLOSING strawberry [STRAWBERRY] Allergy (Severe, Verified 04/15/23 15:50) THROAT CLOSING bee pollen [bee stings] Allergy (Intermediate, Verified 04/15/23 15:50) Unknown [facility] Medical History (Updated 02/24/23 @ 23:24 by Michael Baldwin MD) Sarcoidosis Pulmonary nodules Asthma IBS (irritable bowel syndrome) Surgical History (Updated 08/27/21 @ 09:03 by Nicole Watson MD) History of esophagogastroduodenoscopy (EGD) History of colonoscopy History of tonsillectomy Family History Father No problems noted. Mother Brain tumor (benign) Brother Crohn's disease Social History Household Members Other:: Boyfriend Alcohol intake: never Patient Tobacco Use Status: Never used Tobacco Second Hand Smoke Exposure: No Current occupational status: employed Current occupation: [employer] Physical Exam Vital Signs: Last Vital Signs Pulse 81 04/15/23 15:48 Resp 16 04/15/23 15:48 BP 122/60 04/15/23 15:48 Pulse Ox 100 04/15/23 15:48 Oxygen Delivery Method Room Air 04/15/23 15:48 BMI result Body Mass Index 30.4 Assessment & Plan Assessment & Plan (1) Facet arthritis of lumbar region: Code(s): M47.816 - Spondylosis without myelopathy or radiculopathy, lumbar region Plan: Bilateral diagnostic medial branch block L3-L4 dorsal ramus L5. Informed consent was explained to the patient. All questions were explained and? answered.? The patient was taken inside the operating room where she was positioned prone on the operating table.? Time-out was performed delineating correct site, side, the nature of the procedure, patient's allergy, preoperative antibiotic if needed.? All operating room staff was participating in OR time-out procedure. The lower back was prepped with ChloraPrep and draped with sterile towels.? Sterilely draped C-arm was brought over the operating field and sq picture of L4-and L5 vertebra and S1 AREA were delineated on the screen.? Point of interest were delineated as connection of superior articular process of L4 and L5 vertebra bilaterally with corresponding transverse processes as well as connection of the sacral alae bilaterally with superior articular process of S1.? The projection of the point of interest to the skin were injected with the small amount of local anesthetic lidocaine 2% 1-1.5 cc.? After that 22 gauge 3- 1/2 inch spinal needle was driven sequentially to the points of interest in tunnel vision fashion. After needles gently contacted the bone at the point of interests the needle was injected with small amount of the contrast.? The injection of the contrast did not demonstrate any intravascular or intrathecal spread of the contrast.? After that injection of the?ropivacaine 0.5%-1cc was performed at each needle location.? Upon completion of the injections? needle was? removed and sterile Band-Aids were applied.? The? patient was taken outside of the operating room to recovery room where she recovered uneventfully.? She went home without immediate complications. (2) Sacroiliac joint dysfunction of both sides: Code(s): M53.3 - Sacrococcygeal disorders, not elsewhere classified Plan Clover is a very pleasant 22-year-old female presented to the office today for follow up 2 days s/p diagnostic SIJ injections. Given lack of benefit from diagnostic SIJ injections, will forego SIJ therapeutic as this does not appear to be patient's main pain generator. Patient today complaining of pain, worse with palpation over midline lumbar vertebrae consistent with lumbar spondylosis without radiculopathy. Patient has exhausted conservative treatment including physical therapy, home exercise program, topical lidocaine gel and nonsteroidal anti-inflammatory medications. Discussed options for treatment including diagnostic interventional testing, steroid injections, peripheral nerve stimulation with Sprint, RFA and more permanent neuromodulation. Will schedule patient for Fluoroscopy Guided Diagnostic L3, L4 DR L5 MBB's with local anesthetic. Ativan 0.5mg #2 tabs sent to pharmacy for procedure. One tab under the tongue 1 hour prior to the procedure. May repeat on arrival to the hospital. Patient aware that she needs to have someone drive her to and from the procedure if she takes the ativan. All questions and concerns have been answered and patient agrees with the plan. Follow up after injections and sooner if needed. Orders: Orders FL guidance in treatment room 04/15/23 M47.816 - Spondylosis without myelopathy or radiculopathy, lumbar region Coding Level of Care Code Procedure Only Diagnoses Facet arthritis of lumbar region M47.816 Sacroiliac joint dysfunction of both sides M53.3
[2023-04-15 15:48] VITALS: BP 122/60; PULSE 81; RESP 16; O2SAT 100; BMI 30.4
== END 2023-04-15 15:27 | disposition home or self-care (01) ==
LOC: HO.PMCPRC 14:09
PROVIDERS: PCP General Practice; Visit Provider Anesthesiology
DX: M47.816 Spondylosis without myelopathy or radiculopathy, lumbar region (principal)
CPT/HCPCS: 64493; 64494

== ENCOUNTER 2023-04-17 15:20 | Outpatient (AMB) | payer OTHER, SELFPAY ==
[2023-04-17 15:28] VITALS: BP 125/75; PULSE 72; RESP 16; O2SAT 96; BMI 29.6
--- NOTE | 2023-04-17 15:28 | MHC.OFFVIS ---
Intake Vital Signs 04/17/23 15:28 Height 5 ft 2 in Weight 162 lb BMI 29.6 BP 125/75 Blood Pressure Location Lt brachial Position Sitting Respiration 16 Pulse 72 Pulse Source Pulse Oximeter Pulse Oximetry (%) 96 Oxygen Delivery Method Room Air Intake Visit Reasons: BILAT DX L3-L4-DRL5 MBB 04/15/23/CONFIRMED Allergies apple [APPLE] Allergy (Severe, Verified 04/17/23 15:29) THROAT CLOSING hernández Allergy (Severe, Verified 04/17/23 15:29) THROAT CLOSING kiwi [KIWI] Allergy (Severe, Verified 04/17/23 15:29) THROAT CLOSING lamotrigine [From LAMICTAL] Allergy (Severe, Verified 04/17/23 15:29) HIVES peach [[place]] Allergy (Severe, Verified 04/17/23 15:29) THROAT CLOSING pear [PEAR] Allergy (Severe, Verified 04/17/23 15:29) THROAT CLOSING plum [PLUM] Allergy (Severe, Verified 04/17/23 15:29) THROAT CLOSING strawberry [STRAWBERRY] Allergy (Severe, Verified 04/17/23 15:29) THROAT CLOSING bee pollen [bee stings] Allergy (Intermediate, Verified 04/17/23 15:29) Unknown HPI HPI Comments History of Present Illness Details Patient presents back to the office today for follow up 2 days s/p diagnostic L3-L4 DR L5 MBBs Patient reports that pain was unchanged in the hours after the procedure. It did nothing . Prior: Clover presents back to the office today for follow up 2 says s/p bilateral diagnostic SIJ injections. Patient reports no relief from her pain in the hours after the injections. She states she tried to do activities around the house and was not able to d/t her pain. She continues to report lower back pain with some radiation across lower ngozi, into the buttocks and around to the groin. She denies radiation down legs. Denies red flag symptoms including loss of bowel, bladder or saddle anesthesia. Prior: Clover is a very pleasant 22-year-old female who presents to the office today for evaluation management of her ongoing bilateral lower back pain. Patient reports she has been suffering with this pain for approximately 2 years though it has progressively worsened over the last 6 months. 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 She reports pain across her lower back with intermittent radiation into her buttocks bilaterally. She denies radiation of the pain down either leg. Pain today is rated 6/10, stabbing and aching. Pain is worse with sitting, standing, climbing stairs and laying on either side. Patient completed physical therapy approximately 1.5 months ago without improvement in her symptoms. She attempted manual manipulation with chiropractor approximately 1.5 years ago but reports that this exacerbated her pain. She has tried nonsteroidal anti-inflammatory medication and topical lidocaine gel with no relief. Recent MRI reviewed with patient, results as per below. In terms of muscle damage condition is described as aching, stabbing. Pain is negatively impacting patient's general activity, normal work, sleep and walking. She denies red flag symptoms including loss of bowel, bladder or saddle anesthesia. Patient denies implantable devices, pacemaker or defibrillator. [facility] Medical History (Updated 04/17/23 @ 15:42 by Cindy Jama APRN, [employer]) Sarcoidosis Pulmonary nodules Asthma IBS (irritable bowel syndrome) Surgical History (Updated 08/27/21 @ 09:03 by Nicole Watson MD) History of esophagogastroduodenoscopy (EGD) History of colonoscopy History of tonsillectomy Family History Father No problems noted. Mother Brain tumor (benign) Brother Crohn's disease Social History Household Members Other:: Boyfriend Alcohol intake: never Patient Tobacco Use Status: Never used Tobacco Second Hand Smoke Exposure: No Current occupational status: employed Current occupation: [employer] Review of Systems Const All systems reviewed & are unremarkable except as noted in HPI and below Physical Exam Vital Signs: Last Vital Signs Pulse 72 04/17/23 15:28 Resp 16 04/17/23 15:28 BP 125/75 04/17/23 15:28 Pulse Ox 96 04/17/23 15:28 Oxygen Delivery Method Room Air 04/17/23 15:28 BMI result Body Mass Index 29.6 General: awake, alert, oriented. Answers questions appropriately. Fully engaged in examination. Skin: warm, dry, intact HEENT: Normocephalic. Hearing intact. Cardiac: External chest normal in appearance. Respiratory: No cough, audible wheezing or stridor. Abdomen: without gross distension. Neurological: Oriented to person, place, time and situation. Thought process intact. No gait abnormalities appreciated. Psychiatric: Appropriate mood and affect. Good judgment and insight. Results Reviewed Results Reviewed: 11/15/22 EXAMINATION: MR LUMBAR SPINE WITHOUT CONTRAST FINDINGS: There is moderate disc space narrowing and mild endplate spurring at the L5-S1 level with a shallow, broad-based disc bulge and small annular fissure. Bulging disc mildly impresses upon the S1 nerve roots in the subarticular zones. Mild facet arthropathy present without central canal stenosis. Mild right foraminal narrowing evident as well. The remaining imaged lower thoracic and lumbar discs are well hydrated and normal in appearance without central canal stenosis or foraminal narrowing. Mild leftward lumbar spinal curvature noted. No subluxations are seen. The marrow signal is homogeneous. The distal cord, conus tip, and cauda equina roots are normal. The paraspinal soft tissues are unremarkable. IMPRESSION: Moderate degenerative disc disease at the L5-S1 level with a shallow, broad-based disc bulge and small annular fissure. Bulging disc mildly impresses upon the S1 nerve roots in the subarticular zones without central canal stenosis. Assessment & Plan Assessment & Plan (1) Facet arthritis of lumbar region: Code(s): M47.816 - Spondylosis without myelopathy or radiculopathy, lumbar region (2) Sacroiliac joint dysfunction of both sides: Code(s): M53.3 - Sacrococcygeal disorders, not elsewhere classified Plan Clover is a very pleasant 22-year-old female presented to the office today for follow up 2 days s/p diagnostic L3 L4 DR L5 MBBs She reports no relief from her pain in the hours after the procedure. Pain remained 8/10. Molly TENS unit ordered today. Referral placed to physiatry for evaluation. All questions and concerns have been answered and patient agrees with the plan. Follow up as needed. Orders: Referrals Physiatry Referral M47.816 - Spondylosis without myelopathy or radiculopathy, lumbar region, M54.50 - Low back pain, unspecified Coding Level of Care Code Est Pt Level 3 (42673) Diagnoses Facet arthritis of lumbar region M47.816 Sacroiliac joint dysfunction of both sides M53.3
== END 2023-04-17 15:41 | disposition home or self-care (01) ==
PROVIDERS: PCP General Practice; Visit Provider Registered Nurse Emergency
DX: M47.816 Spondylosis without myelopathy or radiculopathy, lumbar region (principal); M53.3 Sacrococcygeal disorders, not elsewhere classified
CPT/HCPCS: 99213

== ENCOUNTER → 2023-04-17 15:20 | Outpatient (BNVA) | payer OTHER, SELFPAY | PROVIDERS: PCP General Practice; Visit Provider Registered Nurse Emergency | DX: M47.816 Spondylosis without myelopathy or radiculopathy, lumbar region (principal); M54.50 Low back pain, unspecified; M53.3 Sacrococcygeal disorders, not elsewhere classified | CPT/HCPCS: 99212 ==

== ENCOUNTER 2023-06-19 09:16 | Outpatient (AMB) | payer OTHER, SELFPAY ==
--- NOTE | 2023-06-19 09:43 | MHC.OFFVIS ---
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 States pain started 3-4 years ago. No hx of injury/ numbness and tingling. Patient was seen with pain management who referred patient for a further evaluation. Hx of injections with no relief. Patient reports ongoing pain that runs down to her left hip off and on. Allergies apple [APPLE] Allergy (Severe, Verified 06/19/23 09:46) THROAT CLOSING hernández Allergy (Severe, Verified 06/19/23 09:46) THROAT CLOSING kiwi [KIWI] Allergy (Severe, Verified 06/19/23 09:46) THROAT CLOSING lamotrigine [From LAMICTAL] Allergy (Severe, Verified 06/19/23 09:46) HIVES peach [[place]] Allergy (Severe, Verified 06/19/23 09:46) THROAT CLOSING pear [PEAR] Allergy (Severe, Verified 06/19/23 09:46) THROAT CLOSING plum [PLUM] Allergy (Severe, Verified 06/19/23 09:46) THROAT CLOSING strawberry [STRAWBERRY] Allergy (Severe, Verified 06/19/23 09:46) THROAT CLOSING bee pollen [bee stings] Allergy (Intermediate, Verified 06/19/23 09:46) Unknown Medication List - Last Reconciled 06/19/23 by Hanane Murrell MD albuterol sulfate 0.63 mg inhalation Q4-6H PRN albuterol sulfate 90 mcg/actuation (ProAir HFA) 2 puffs inhalation Q6H PRN budesonide-formoterol 160-4.5 mcg/actuation (Symbicort) 2 puffs inhalation BID 30 days hcstoavtgf-wifljzay-beaupwjiua 160-9-4.8 mcg/actuation (Breztri Aerosphere) 2 inhalations inhalation BID 30 days lwtosbjonu-ynhcgjxdtdpgt-hquv 50-300-40 mg (Fioricet) 1 cap PO Q4-6H PRN fluticasone propionate 110 mcg/actuation (Flovent HFA) 2 puffs inhalation BID lorazepam 0.5 mg sublingual ONCE nebulizers As directed tiotropium bromide 2.5 mcg/actuation (Spiriva Respimat) 2 puffs inhalation DAILY 30 days tizanidine 2 mg PO TID PRN HPI HPI Comments History of Present Illness Details Patient referred from pain management for 2nd opinion. Back pain started 3 years ago. No inciting injuries. Did not play sports or dance when younger. Used to bother her almost daily, more discomfort, 1-2/10. Since last year, it has been more constant, 7/10, regardless of position. Standing straight or laying flat or side bothers her. Pain in the middle, goes to hips a bit, right worse than left, but does not radiates to legs/feet. No numbness. No foot drop. No bladder/bowel changes. Works in a [employer] job. Used to be CIRCULATION SALES REPRESENTATIVE, with carrying clients. Treatment done so far: tried pain med for a week from pain management TENS unit worked temporarily therapy - last summer 2022 injection - diagnostic MBB and diagnosed SI joint injections by pain management did not help at all [facility] Medical History (Updated 06/19/23 @ 10:14 by Hanane Murrell MD) Lumbar disc herniation Sarcoidosis Pulmonary nodules Asthma IBS (irritable bowel syndrome) Surgical History (Updated 08/27/21 @ 09:03 by Nicole Watson MD) History of esophagogastroduodenoscopy (EGD) History of colonoscopy History of tonsillectomy Family History Father No problems noted. Mother Brain tumor (benign) Brother Crohn's disease Social History Household Members Other:: Boyfriend Alcohol intake: never Patient Tobacco Use Status: Never used Tobacco Second Hand Smoke Exposure: No Current occupational status: employed Current occupation: [employer] work Review of Systems Const All systems reviewed & are unremarkable except as noted in HPI and below Physical Exam Vital Signs: BMI result Body Mass Index 29.6 Constitutional: Patient appears to be in no acute distress, well nourished and well developed. Patient was appropriately conversant and oriented. Good historian. MSK: No specific abnormalities found on inspection of the spine and all extremities. No pain with palpation over the lumbar area. Tender left SI joint. When she laid down, she was very uncomfortable lower back. Lumbar ROM was full. Bilateral hip, knee and ankle ROM WNL. No ligamentous laxity or crepitance. No increased effusion. Straight-leg raising test negative. FABERE test positive left SI joint pain. Strength is 5/5 in all muscle groups tested. No increased tone noted. Neurological: Neurologic examination of the upper and lower extremities was nonfocal with intact sensation, muscle stretch reflexes and without focal motor deficits . Espino?s negative bilaterally. Babinski was down going bilaterally. Clonus was negative. Gait is non-antalgic without loss of balance. Patient was able to perform heel walk and toe walk. Results Reviewed Results Reviewed: I independently reviewed the results of the following: Lumbar MRI 11/15/2022-showed a disc bulge L5-S1, with mild foraminal stenosis I reviewed records from the following: Pain managed Assessment & Plan Assessment & Plan (1) Lumbar disc herniation: Code(s): M51.26 - Other intervertebral disc displacement, lumbar region (2) Sacroiliac joint dysfunction of left side: Code(s): M53.3 - Sacrococcygeal disorders, not elsewhere classified Plan Chronic back pain that has progressed since last year. No signs of radiculopathy or neurologic deficits. However I agree that her low back pain could be discogenic, consistent with the findings of disc bulge at L5-S1. She is also having pain on left SI joint. I would recommend trial of lumbar epidural injection, interlaminar approach L5-S1. I would also recommend trying left SI joint injection again, but this time with steroid and therapeutic, not diagnostic. We talked about changing mattress of her bed and doing core exercises to help. After discussion, we agreed on sending her to Dr. Carrion, Family Physiatry. She will need a formal referral order from her PCP. She was advised to bring her medical records from this office and obtain CD of her MRI. Assessment and plan discussed with patient, and patient was agreeable. All questions were answered thoroughly. Hanane Murrell MD, SCOTTY Board Certified, [place] Board of Physical Medicine and Rehabilitation (ABPMR) Board Certified, [place] Board of Electrodiagnostic Medicine (ABEM) Coding Level of Care Code New Pt Level 4 (91376) Diagnoses Lumbar disc herniation M51.26 Sacroiliac joint dysfunction of left side M53.3
[2023-06-19 09:46] VITALS: BMI 29.6
== END 2023-06-19 10:25 | disposition home or self-care (01) ==
PROVIDERS: PCP General Practice; Visit Provider Physical Medicine & Rehabilitation
DX: M51.26 Other intervertebral disc displacement, lumbar region (principal); M53.3 Sacrococcygeal disorders, not elsewhere classified
CPT/HCPCS: 99204

== ENCOUNTER → 2023-06-19 09:16 | Outpatient (BNVA) | payer OTHER, SELFPAY | PROVIDERS: PCP General Practice; Visit Provider Physical Medicine & Rehabilitation | DX: M51.26 Other intervertebral disc displacement, lumbar region (principal); M53.3 Sacrococcygeal disorders, not elsewhere classified | CPT/HCPCS: 99202 ==

== ENCOUNTER 2023-09-18 17:38 | Outpatient (REF) | payer OTHER, SELFPAY ==
[2023-09-19 18:34] LABS: C. trachomatis RNA TMA NOT DETECTED (NOT DETECTED); N. gonorrhoeae RNA TMA NOT DETECTED (NOT DETECTED)
== END 2023-09-18 17:39 | disposition home or self-care (01) ==
LOC: HO.HHCLNP 17:38
PROVIDERS: Visit Provider General Practice
DX: Z12.4 Encounter for screening for malignant neoplasm of cervix (principal)
CPT/HCPCS: 36415; 81513; 87491; 87591; 88142

== ENCOUNTER 2023-12-22 07:21 | Outpatient (AMB) | payer OTHER, SELFPAY ==
[2023-12-22 07:30] VITALS: BP 108/66; BMI 28.5
--- NOTE | 2023-12-22 07:30 | MHC.OFFVIS ---
Vital Signs 12/22/23 07:30 Height 5 ft 2 in Weight 156 lb BMI 28.5 BP 108/66 Intake Visit Reasons: Tubal Ligation/referral/DO NOT RS Intake Note: Patient here for tubal consult , no children Systems Project Manager Required: No Information Interpreted: non-clinical & clinical Accompanied by: Self / Same As Patient Allergies apple [APPLE] Allergy (Severe, Verified 12/22/23 07:31) THROAT CLOSING hernández Allergy (Severe, Verified 12/22/23 07:31) THROAT CLOSING kiwi [KIWI] Allergy (Severe, Verified 12/22/23 07:31) THROAT CLOSING lamotrigine [From LAMICTAL] Allergy (Severe, Verified 12/22/23 07:31) HIVES peach [[place]] Allergy (Severe, Verified 12/22/23 07:31) THROAT CLOSING pear [PEAR] Allergy (Severe, Verified 12/22/23 07:31) THROAT CLOSING plum [PLUM] Allergy (Severe, Verified 12/22/23 07:31) THROAT CLOSING strawberry [STRAWBERRY] Allergy (Severe, Verified 12/22/23 07:31) THROAT CLOSING bee pollen [bee stings] Allergy (Intermediate, Verified 12/22/23 07:31) Unknown Is last menstrual period known: Yes Last menstrual period: 12/08/23 HPI Comments Details: Presenting to discuss different options of control. The patient is on Nexplanon since October of 2020, was due to have Nexplanon taken out more than 2 months ago, has been using condoms as a method of control. [facility] Medical History Lumbar disc herniation Sarcoidosis Pulmonary nodules Asthma IBS (irritable bowel syndrome) Surgical History History of esophagogastroduodenoscopy (EGD) History of colonoscopy History of tonsillectomy Family History Father No problems noted. Mother Brain tumor (benign) Brother Crohn's disease Social History Household Members Other:: Boyfriend Alcohol intake: never Patient Tobacco Use Status: Never used Tobacco Second Hand Smoke Exposure: No Current occupational status: employed Current occupation: [employer] History Menstrual Date of last menstrual period: 12/08/23 Review of Systems Const All systems reviewed & are unremarkable except as noted in HPI and below Reports as per HPI and Reports no additional complaints GI Reports no additional complaints Reports no additional complaints Physical Exam Vital Signs: Last Vital Signs BP 108/66 12/22/23 07:30 BMI result Body Mass Index 28.5 Office Procedures Contraception Insert/Removal Details Details: Counseling/Consent: After discussing with the patient the risks of the procedure including bleeding, infection, scar tissue formation, , possible injury to blood vessels or nerves, chronic arm pain, blood transfusion, and irregular unpredictable bleeding Preopdx: Requesting Nexplanon removal Op: Nexplanon Removal Post op dx: same EBL= 10 cc Procedure: After discussing with the patient the risks of the procedure including bleeding, infection, scar tissue formation, the patient signed the consent and agreed with the plan; all questions answered. The patient was then put in the dorsal supine position with Left arm in which Nexplanon is located exposed. Then the area was scrubbed with betadine. Nexplanon was located next by palpation and the end closest to the elbow was marked with a sterile marker. 5cc 1% Xylocaine was used to anesthetize the area at the site near the tip of Nexplanon. Next, a 3 mm incision in the longitudinal direction of the arm at the tip of the implant was made and the Nexplanon was pushed toward the incision until the tip was visible. The implant was grasped with a curved mosquito forceps and pulled out gently. Then incision was closed with steri-strips approximating the edges and an adhesive bandage was applied. A pressure bandage was applied with sterile gauze to minimize bruising. At the end explained to the patient that she is not covered with contraception anymore and recommended for her to use another contraceptive method. Discharge instructions: Patient was instructed to call if any of the following occurs :temperature above 100.4, pain at the side of the incision, redness, discharge or gapping, arm pain or bleeding. All questions answered patient verbalized understanding . This note was generated with a voice recognition program. Some errors may have been overlooked during the review of this note. Sometimes these errors may affect the content or meaning of a given sentence. 62258 - Removal Office Meds Nexplanon 68 mg subdermal implant Performing Provider: Jose Park MD Performing Location: [facility] [place] [facility] Documented (not given) by: Jose Park MD on 12/22/23 08:20 Dose Route Admin Location Dispensed Lot Number Expiration Date NDC Manager Simulation 1 implant subdermal ea Assessment & Plan Assessment & Plan (1) Family planning: Code(s): Z30.09 - Encounter for other general counseling and advice on contraception Category: Social Hx Plan: Since Nexplanon is for more than 2 and half months, recommended removal of Nexplanon and using backup method for control. Discussed with the patient the different options of control including control pills/Nuvaring, DMPA, different types of IUD ?s ( Cu vs Progesterone IUD). All the pros, cons, risks and benefits of each were discussed with the patient. The patient decided to go ahead with Paraguard IUD, so a more detailed discussion about the mechanism of action, risks (infection, uterine perforation, failure with ectopic , septic AB, others) benefits (efficient contraceptive method, others), the patient was asked to call day one of next cycle for IUD insertion. (2) Nexplanon removal: Code(s): Z30.46 - Encounter for surveillance of implantable subdermal contraceptive Category: Medical Plan: Procedure done, see procedure note, instructions given the patient to use backup method for control till IUD insertion. All questions answered, the patient verbalized understanding Orders: Orders AMB Nexplanon/Implanon Insertion/Removal - Practice Supplied Today Z30.46 - Encounter for surveillance of implantable subdermal contraceptive Medications: New Nexplanon (etonogestrel) 1 implant subdermal ONCE 1 ea 0RF NS Z30.46 - Encounter for surveillance of implantable subdermal contraceptive Coding Level of Care Code New Pt Level 3 (03269) Procedure Only Diagnoses Family planning Z30.09 Nexplanon removal Z30.46 CPT Codes Details - Contraception: 03151 - Removal ([id number])
== END 2023-12-22 08:22 | disposition home or self-care (01) ==
PROVIDERS: PCP General Practice; Visit Provider Obstetrics & Gynecology
DX: Z30.09 Encounter for other general counseling and advice on contraception (principal); Z30.46 Encounter for surveillance of implantable subdermal contraceptive
CPT/HCPCS: 11982; 99203

== ENCOUNTER → 2023-12-22 07:21 | Outpatient (BNVA) | payer OTHER, SELFPAY | PROVIDERS: PCP General Practice; Visit Provider Obstetrics & Gynecology | DX: Z30.09 Encounter for other general counseling and advice on contraception (principal); Z30.46 Encounter for surveillance of implantable subdermal contraceptive | CPT/HCPCS: 11982; 99202 ==

== ENCOUNTER 2024-01-30 20:23 | Emergency (ER) | payer OTHER, SELFPAY ==
--- NOTE | 2024-01-30 21:06 | MHC.EDTECH ---
Called ME to report demographics at approx. 2100.
[2024-01-30 21:14] VITALS: BMI 25.0
--- NOTE | 2024-01-30 21:47 | ED_ITS ---
HPI - CPR General Chief Complaint: Cardiac Arrest/CPR Stated Complaint: Cardiac arrest, possible suicide attempt Time Seen by Provider: 01/30/24 20:34 Source: EMS Mode of arrival: EMS Limitations: other History of Present Illness ED Provider: Dr. Stacie Chung HPI narrative: patient comes to the emergency room via ambulance in cardiac arrest. According to EMS, the patient was found in her and her boyfriend's house, hanging. it is unclear but seems that the patient's boyfriend found her, called 911. When PD arrived, they removed the rope-like device from the patient's neck and started CPR. when EMS arrived, they took over. They tried to intubate the patient but patient's jaw was completely rigid and they were unable to open the mouth. Patient was ventilated via bag-valve mask, Josias was used for chest compressions. on arrival, pulse check , cardiac rhythm showed asystole Related Data Home Medications ?Medication ?Instructions ?Recorded ?Confirmed albuterol sulfate 0.63 mg/3 mL 0.63 mg inhalation Q4-6H PRN 02/19/22 06/19/23 solution for nebulization albuterol sulfate 90 mcg/actuation 2 puff inhalation Q6H PRN 02/19/22 06/19/23 aerosol inhaler (ProAir HFA) nebulizers 11/18/22 06/19/23 etonogestrel 68 mg subdermal subdermal 12/22/23 implant (Nexplanon) Previous Rx's ?Medication ?Instructions ?Recorded tizanidine 2 mg tablet 2 mg PO TID PRN muscle spasticity 02/18/23 #30 tabs Allergies Allergy/AdvReac Type Severity Reaction Status Date / Time apple [APPLE] Allergy Severe THROAT Verified 01/30/24 21:16 CLOSING hernández Allergy Severe THROAT Verified 01/30/24 21:16 CLOSING kiwi [KIWI] Allergy Severe THROAT Verified 01/30/24 21:16 CLOSING lamotrigine [From LAMICTAL] Allergy Severe HIVES Verified 01/30/24 21:16 peach [[place]] Allergy Severe THROAT Verified 01/30/24 21:16 CLOSING pear [PEAR] Allergy Severe THROAT Verified 01/30/24 21:16 CLOSING plum [PLUM] Allergy Severe THROAT Verified 01/30/24 21:16 CLOSING strawberry [STRAWBERRY] Allergy Severe THROAT Verified 01/30/24 21:16 CLOSING bee pollen [bee stings] Allergy Intermediate Unknown Verified 01/30/24 21:16 Review of Systems Review of Systems: Yes Other [facility] Past Medical History Medical History Lumbar disc herniation Sarcoidosis Pulmonary nodules Asthma IBS (irritable bowel syndrome) Surgical History History of esophagogastroduodenoscopy (EGD) History of colonoscopy History of tonsillectomy Family History Family History Father No problems noted. Mother Brain tumor (benign) Brother Crohn's disease Social History Social History Household Members Other:: Boyfriend Alcohol intake: never Patient Tobacco Use Status: Never used Tobacco Second Hand Smoke Exposure: No Advance Directives: No Advance Directives Information Provided: No Current occupational status: employed Current occupation: [employer] Physical Exam Vital Signs: Vital Signs: BMI result Body Mass Index 25.0 Const: Other: Appearance: mottled , pale Eyes: dilated, fixed, unresponsive to light ENT: in the nose there is a nasal trumpet, frothy sputum pouring out, jaw is clenched down, unable to open mouth Neck: patient has deep purple in the patient around the neck, most noticeable in the frontal aspect CVS: CPR in progress Respiratory: CPR in progress Abdomen: distended Skin: cold, mottled Extremities: patient's arms and legs are very rigid. Patient in rigor mortis Neuro: unresponsive Psych: unresponsive Course Course Course Narrative: - according to the patient's mother, at 16:30 was the last time that they were able to communicate. The mother explains that she had planned to meet her daughter later in the day, both were going to get their nails done - the mother explains that the patient recently broke up with her boyfriend - patient has history of anxiety and depression, when she was younger, patient had a tendency of doing superficial cuts in her forearm. However, she never had any serious suicidal attempts. - Reviewing patient's record, patient took occasional Ativan for severe anxiety. Does not seem that patient had any previous psychiatric evaluations here at [facility]. - According to the patient's parents, she did not smoke, only occasional drank alcohol, no known drug use - patient's parents very shocked, they state that she was doing well in life overall, she had good things going in her life Medical Decision Making Medical Decision Making MDM Narrative: - by the time that patient arrived to the emergency room, patient's extremities were rigid. I estimate that the patient at least 2 hours prior to arrival. - On arrival, intubation was considered. However, patient's jaw was completely clench closed, unable to open even with forced. Patient was given etomidate and rocuronium to try to open the airway. However, it did not work. Patient continued to be ventilated via bag-valve mask - given the patient's young age, with a few rounds of CPR and medications. - time of was called at 20:30 - patient's mother, stepfather and biological father were informed of what happened. - medical insurance verifier accepted the case, - family aware that they can not touch the patient/ Remove any belongings - cause of suicide, asphyxiation, hanging - per patient's family's request, screw machine operator has been called Differential Diagnosis Differential Diagnoses: The differential diagnosis associated with the presentation includes Critical Care Time Critical Care Time Critical Care Time: Yes Total Critical Care Time: 35 Attestation: I have personally provided critical care time. Time includes review of lab data, radiology results, discussion with consultants, and monitoring for potential decompensation. Intervention performed as documented. Discharge Plan Discharge Clinical Impression: Cardiac arrest, Suicide Patient Disposition: Date/Time: 01/30/24 20:30
--- NOTE | 2024-01-30 22:34 | MHC.EDTECH ---
Pt belongings are as follows: 5 rings 1 earring, necklace, 1 anklet, 2 nipple rings, pair of shorts, tshirt.
--- NOTE | 2024-01-30 22:47 | PC.NURSE ---
Patient GUILLERMO from home after found hanging in closet by family, BLS crew on scene initiated CPR at 1922, Patient arrived to ED w/ Josias on, aysystole on pulse check, see code blue sheet for full code documentation. Patient's time of 2029. Family made aware. Organ donation called [id number], accepted patient. ME case. Family at bedside to say goodbyes, staff at bedside to ensure patient is not touched by family per ME case protocol. Belongings catalogued, [place] [facility] [place]
--- NOTE | 2024-01-30 23:09 | MHC.CM.ED ---
CM met with family to provide supports, as patient had hung herself in her home. Family was distraught. CM stayed with family while they sat with their daughter. Offered supports. Call Pastor Brownlee at the request of the family to provide spiritual support. Discussed with family the plan moving forward, including that patient was accepted by the medical coding instructor for cause of , that they may be called by the police for any information for their investigation and they will be called by the OR when the body can be released to the home. Given CM contact information and main ED contact information. Home is [facility] [address] in [place]. Family escorted to the lobby when their visitation was completed. Offered supports and condolences.
[2024-02-17 07:43] LABS: Glucose, Whole Blood < 10 mg/dL (60-115)
== END 2024-01-30 22:52 | disposition expired ==
PROVIDERS: Emergency Provider Emergency Medicine
DX: I46.9 Cardiac arrest, cause unspecified (principal); T71.162A Asphyxiation due to hanging, intentional self-harm, initial encounter; X83.8XXA Intentional self-harm by other specified means, initial encounter
CPT/HCPCS: 82947; 99282; 99284; J0171